=== PATIENT | female | born 1960 | race Caucasian/White ===

== ENCOUNTER 2017-01-05 18:31 | Inpatient (IN) | payer OTHER ==
[2017-01-05 18:31] VITALS: BMI 25.0
--- NOTE | 2017-01-05 19:56 | ED PDOC ---
HPI: Hypertension/Hypotension Time Seen by Provider: 01/05/17 19:19 Chief Complaint (Nursing): High Blood Pressure Chief Complaint (Provider): Headache/HTN History Per: Patient History/Exam Limitations: no limitations Onset/Duration Of Symptoms: Days (x2 months) Current Symptoms Are (Timing): Still Present Associated Symptoms: denies: Blurred Vision, Focal Weakness Additional Complaint(s): 19:19 Yogesh Mchugh is a 56 year old female with a history of hypertension, diabetes , and hyperlipidemia, as well as a past surgical history of debridement of an infected wound in her right ankle, that presents to the ED with a chief complaint of headache that she has been experiencing for the past two months, along with associated symptoms of lightheadedness, fatigue, and mild bilateral leg swelling. Patient states that her headache has been worsening since onset, and that she went to the clinic to have her symptoms evaluated for the first time. At the clinic, she was told that her blood pressure was highly elevated, and was sent to the ED for further evaluation. She denies any chest pain, shortness of breath, focal weakness, blurry vision, nausea, or vomiting. Of Note: Patient has not seen a doctor in the past 7 months. She is now a patient of the clinic. Past Medical History Reviewed: Historical Data, Nursing Documentation, Vital Signs Vital Signs: Last Vital Signs Temp 98.0 F 01/05/17 19:03 Pulse 99 H 01/05/17 19:03 Resp 18 01/05/17 19:03 BP 225/101 H 01/05/17 19:03 Pulse Ox 99 01/05/17 19:03 - Medical History PMH: Diabetes, HTN, Hyperlipidemia - Surgical History Other surgeries: debridement of infected wound on right ankle - Family History Family History: States: Diabetes, Hypertension - Social History Current smoker - smoking cessation education provided: No Alcohol: None Drugs: Denies - Home Medications Home Medications: Ambulatory Orders Medication Instructions Recorded GlipiZIDE [Glipizide] 10 mg PO BID 07/08/16 Lisinopril/Hydrochlorothiazide 1 tab PO DAILY 07/08/16 [Lisinopril-Hydrochlorothiazide 25 mg-20 mg] Lovastatin 10 mg PO DAILY 07/08/16 Metformin HCl [Glucophage] 1,000 mg PO BID 07/08/16 Patient Own Control 1 tab PO BID 01/05/17 - Allergies Allergies/Adverse Reactions: Allergies Allergy/AdvReac Type Severity Reaction Status Date / Time No Known Allergies Allergy Unverified 07/08/16 18:36 Review of Systems Constitutional: Positive for: Other (fatigue) Eyes: Negative for: Other (denies blurry vision or focal weakness) Cardiovascular: Positive for: Edema (mild leg swelling bilaterally), Light Headedness. Negative for: Chest Pain Respiratory: Negative for: Shortness of Breath Gastrointestinal: Negative for: Nausea, Vomiting Neurological: Positive for: Headache (x2 months) Physical Exam - Reviewed Nursing Documentation Reviewed: Yes Vital Signs Reviewed: Yes - Physical Exam Appears: Positive for: Non-toxic, In Acute Distress (in mild painful distress) Head Exam: Positive for: ATRAUMATIC, NORMOCEPHALIC Skin: Positive for: Warm, Dry Eye Exam: Positive for: Normal appearance, EOMI, PERRL ENT: Positive for: Pharynx Is (clear), Other (moist mucous membranes) Neck: Positive for: Painless ROM, Trachea Midline Cardiovascular/Chest: Positive for: Regular Rate, Rhythm. Negative for: Murmur Respiratory: Positive for: Normal Breath Sounds. Negative for: Wheezing Gastrointestinal/Abdominal: Positive for: Soft. Negative for: Tenderness, Mass , Guarding, Rebound Back: Positive for: Normal Inspection. Negative for: L CVA Tenderness, R CVA Tenderness Extremity: Positive for: Normal ROM, Pedal Edema (trace bilateral lower leg edema). Negative for: Deformity Lymphatic: Negative for: Adenopathy (no cervical lymph adenopathy) Neurologic/Psych: Positive for: Alert, Oriented (x3). Negative for: Motor/ Sensory Deficits - Laboratory Results Result Diagrams: 01/06/17 06:00 01/06/17 06:00 - ECG O2 Sat by Pulse Oximetry: 99 (RA) Pulse Ox Interpretation: Normal Medical Decision Making Medical Decision Makin:30 Initial Impression: Hypertension and Headache vs. Hypertensive Encephalopathy vs. Hypertensive Urgency vs. Renal Insufficiency vs. Electrolyte Abnormality Initial Plan: * CBC * CMP * BNP * PTT * PT * Magnesium * Phosphorous * Troponin * Glucose * Blood * POC * Urine dipstick * EKG * CT Head w/o contrast * Reevaluation 21:25 * Tylenol 975 mg PO * Vasotec 1.25 mg IV Accession No. 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 no. Patient Name: ALEJANDRA MCHUGH Pt. Address: [address] [place] [address]. Rec #: [id number] [place] [address]: Sarthak FARRIS, Sabina Schuler Pt Order Location: [facility] : 1960 Female Age: 56 Order #: [id number] Reason for exam: hypertension CT Scan HEAD W/O CONTRAST Exam Date: 01/05/17 This imaging exam was performed at [facility] EXAM: CT Head Without Intravenous Contrast. CLINICAL HISTORY: 56 years old, female; Signs and symptoms; Other: Hypertension, headaches; Additional info: Hypertension. No priors TECHNIQUE: Axial computed tomography images of the head/brain without intravenous contrast. This CT exam was performed using one or more of the following dose reduction techniques: automated exposure control, adjustment of the mA and/or kV according to patient size, and/or use of iterative reconstruction technique. Coronal and sagittal reformatted images were created and reviewed. COMPARISON: No relevant prior studies available. FINDINGS: Brain: Minimal atrophy. No intracranial hemorrhage. No mass. No definite edema. Ventricles: No hydrocephalus. Bones/joints: No acute fracture. Soft tissues: Unremarkable. Sinuses: No acute sinusitis. Mastoid air cells: No mastoid effusion. Orbits: Unremarkable as visualized. Sella: Flattening of pituitary gland with CSF density within sella. IMPRESSION: 1. No definite acute intracranial abnormality. Acute infarction may be CT occult within first 24 hours. If a focal deficit persists, consider followup CT or MRI for further evaluation. 2. Incidental/non-acute findings are described above. Dictated By: Enrico Shah MD Dictated Date/Time: 01/05/172057 Signed By: Enrico Shah MD Date Signed: 2057 Transcribed By: RENETTA Transcribe Date/Time : 01/05/172057 ACYP02/VRD Persistently elevated BP and headache. Mild renal insufficiency. Concern for hypertensive urgency/encephalopathy, and early renal disease from hypertension. Will hospitalize for uncontrolled BP. LOGAN THAKKAR resident. Scribe Attestation: Documented by Mirna Gomez, acting as a scribe for Sabina De León MD. Provider Scribe Attestation: All medical record entries made by the Scribe were at my direction and personally dictated by me. I have reviewed the chart and agree that the record accurately reflects my personal performance of the history, physical exam, medical decision making, and the department course for this patient. I have also personally directed, reviewed, and agree with the discharge instructions and disposition. Disposition - Clinical Impression Clinical Impression: Hypertensive urgency Counseled Patient/Family Regarding: Studies Performed, Diagnosis - Disposition Disposition Time: 23:00 Condition: FAIR - Pt Status Changed To: Hospital Disposition Of: Observation - POA Present On Arrival: Poor Glycemic Control
--- NOTE | 2017-01-05 20:58 | CT ---
EXAM: CT Head Without Intravenous Contrast. CLINICAL HISTORY: 56 years old, female; Signs and symptoms; Other: Hypertension, headaches; Additional info: Hypertension. No priors TECHNIQUE: Axial computed tomography images of the head/brain without intravenous contrast. This CT exam was performed using one or more of the following dose reduction techniques: automated exposure control, adjustment of the mA and/or kV according to patient size, and/or use of iterative reconstruction technique. Coronal and sagittal reformatted images were created and reviewed. COMPARISON: No relevant prior studies available. FINDINGS: Brain: Minimal atrophy. No intracranial hemorrhage. No mass. No definite edema. Ventricles: No hydrocephalus. Bones/joints: No acute fracture. Soft tissues: Unremarkable. Sinuses: No acute sinusitis. Mastoid air cells: No mastoid effusion. Orbits: Unremarkable as visualized. Sella: Flattening of pituitary gland with CSF density within sella. IMPRESSION: 1. No definite acute intracranial abnormality. Acute infarction may be CT occult within first 24 hours. If a focal deficit persists, consider followup CT or MRI for further evaluation. 2. Incidental/non-acute findings are described above.
[2017-01-05 21:07] LABS: BASO % 0.4 % (0.0-2.0); EOS % 0.4 % (0.0-4.0); HEMATOCRIT 33.4 % (34.0-47.0); LYMPH # 1.5 K/uL (1.0-4.3); LYMPH % 12.5 % (20.0-40.0); MEAN CELL VOLUME 85.6 fl (81.0-99.0); MEAN CORPUSCULAR HEMOGLOBIN 27.9 pg (27.0-31.0); MEAN CORPUSCULAR HGB CONC 32.6 g/dL (33.0-37.0); MEAN PLATELET VOLUME 9.7 fl (7.2-11.7); MONO # 0.6 K/uL (0.0-0.8); MONO % 4.7 % (0.0-10.0); NEUT # 9.6 K/uL (1.8-7.0); PARTIAL THROMBOPLASTIN TIME 26.6 SECONDS (23.3-32.5); RED CELL DISTRIBUTION WIDTH 13.2 % (11.5-14.5); WHITE BLOOD COUNT 11.8 K/uL (4.8-10.8)
[2017-01-05 21:22] LABS: ALKALINE PHOSPHATASE 241 U/L (38-126); ALT/SGPT 37 U/L (9-52); AST/SGOT 33 U/L (14-36); BILIRUBIN,TOTAL 0.4 mg/dl (0.2-1.3); BLOOD UREA NITROGEN 28 mg/dl (7-17); CALCIUM 9.5 mg/dL (8.4-10.2); CARBON DIOXIDE 22 mmol/L (22-30); CHLORIDE 101 mmol/L (98-107); GFR AFRICAN-AMERICAN > 60; GLUCOSE,RANDOM 308 mg/dL (65-105); MAGNESIUM 1.5 MG/DL (1.6-2.3); PHOSPHOROUS 3.7 mg/dl (2.5-4.5); POTASSIUM 5.1 MMOL/L (3.6-5.0); SODIUM 140 mmol/l (132-148); TOTAL PROTEIN 7.9 G/DL (6.3-8.2)
[2017-01-05] MEDS ORDERED: Enalaprilat 2.5 MG/2 ML IVP STA (21:36)
[2017-01-05] MEDS ORDERED: EnalaprilAT 1.25 mg/ml Inj ONE (21:57)
[2017-01-05] MEDS ORDERED: Labetalol 5mg/ml (4ml) IVP STA (23:53)
[2017-01-06] MEDS ORDERED: Labetalol 5mg/ml (4ml) ONE (00:55)
--- NOTE | 2017-01-06 00:58 | CP.PCM.HP ---
History of Present Illness - History of Present Illness History of Present Illness: 56 yo F with PMHx HTN, HLD, DM presented to clinic for initial visit. Patient was previously seen by Dr. Wang approx 6 months ago. Patient was last seen at [facility] ED 06/2016 for chest pain though no issues with HTN at that time. Patient was found to have BP of ~200/90. Patient was given 5mg of Amlodipine though did not lower blood pressure significantly so patient was therefore sent to ED for further evaluation. Of note, patient had been having headaches x 2 months, including this morning and prior to arrival. Patient denies visual changes, palpitations, chest pain, sob, abdominal pain, dizziness , back pain, urinary/bowel symptoms. Patient states compliance with medications and states she took them this AM. No other complaints at this time. Patient admits to having a poor diet including foods that have increased salt and fat ( e.g. fried shrimp from [employer] last night) PMHx: HTN, HLD, DM Meds: As per chart Allergies: NKDA Surgeries: debridement of an infected wound in her right ankle (states 2/2 DM) Social hx: Lives with family, works 12 hr shifts, Denies etoh, tobacco, or drug use. ED Course: Vitals notable for BPs 200s/90s with HR in 90s PE: unremarkable except for trace bilateral lower extremity edema EKG: unremarkable Meds: Tylenol 975mg x1, Vasotec 1.25mg x 1 Labs: remarkable for mild leukocytosis, mild hyperkalemia, elevated serum glucose, elevated Alk phos. Trop negative Imaging: CT head, unremarkable. Present on Admission - Present on Admission Any Indicators Present on Admission: No Review of Systems - Review of Systems All systems: reviewed and no additional remarkable complaints except (mentioned in HPI) Past Patient History - Past Social History Alcohol: None Drugs: Denies - CARDIAC Hx Hypertension: Yes - ENDOCRINE/METABOLIC Hx Diabetes Mellitus Type 1: Yes Hx Diabetes Mellitus Type 2: Yes - PSYCHIATRIC Hx Substance Use: No Meds Allergies/Adverse Reactions: Allergies Allergy/AdvReac Type Severity Reaction Status Date / Time No Known Allergies Allergy Unverified 07/08/16 18:36 Physical Exam - Constitutional Appears: Well, Non-toxic, No Acute Distress - Head Exam Head Exam: ATRAUMATIC, NORMAL INSPECTION, NORMOCEPHALIC - Eye Exam Eye Exam: EOMI, Normal appearance, PERRL - Neck Exam Neck exam: Positive for: Normal Inspection - Respiratory Exam Respiratory Exam: Clear to Auscultation Bilateral, NORMAL BREATHING PATTERN. absent: Decreased Breath Sounds, Rales, Rhonchi, Wheezes - Cardiovascular Exam Cardiovascular Exam: RRR, +S1, +S2 - GI/Abdominal Exam GI & Abdominal Exam: Normal Bowel Sounds, Soft. absent: Distended, Tenderness - Extremities Exam Extremities exam: Positive for: normal inspection, pedal edema (mild bilaterally ). Negative for: calf tenderness Additional comments: varicose veins bilaterally - Back Exam Back exam: NORMAL INSPECTION - Neurological Exam Neurological exam: Alert, Oriented x3 - Psychiatric Exam Psychiatric exam: Normal Affect, Normal Mood - Skin Skin Exam: Dry, Intact, Normal Color, Warm Results - Vital Signs Recent Vital Signs: Last Vital Signs Temp 98.0 F 01/05/17 19:03 Pulse 98 H 01/05/17 22:40 Resp 22 01/05/17 22:40 BP 212/103 H 01/05/17 23:50 Pulse Ox 99 01/05/17 22:40 - Labs Result Diagrams: 01/05/17 20:33 01/05/17 20:33 Assessment & Plan (1) Hypertensive disease Status: Acute (2) HLD (hyperlipidemia) Status: Chronic (3) Diabetes mellitus Status: Chronic (4) DVT prophylaxis Status: Acute - Assessment and Plan (Free Text) Assessment: 56 yo F with PMHx HTN, HLD, DM with uncontrolled hypertension associated with intermittent headaches. Plan: (1) Hypertensive disease - Uncontrolled though asymptomatic at this time - CT head negative - s/p amlodipine 5mg in clinic, 1.25mg IV vasotec in ED in addition to home meds of Lisinopril 20mg and HCTZ 25mg - Continues to be elevated and uncontrolled - Labetalol 20mg IVP stat - Continue to monitor vitals - Admit to Telemetry for continous cardiac monitoring - Echo ordered, pro-bnp wnl - EKG in AM - Trop x 1 neg, obtain serial trop - TSH, CBC, CMP in AM - UA pending - Monitor K and WBC (2) HLD (hyperlipidemia) - Continue home meds - Lipid panel ordered for AM - alk phos elevated, obtain GGT (3) Diabetes mellitus - Continue home meds at this time. - will obtain HgbA1c at this time (4) DVT prophylaxis - Lovenox 40mg SC daily
[2017-01-06 07:11] LABS: HEMATOCRIT 34.9 % (34.0-47.0); MEAN CELL VOLUME 84.8 fl (81.0-99.0); MEAN CORPUSCULAR HEMOGLOBIN 28.4 pg (27.0-31.0); MEAN CORPUSCULAR HGB CONC 33.5 g/dL (33.0-37.0); RED CELL DISTRIBUTION WIDTH 13.4 % (11.5-14.5); WHITE BLOOD COUNT 8.8 K/uL (4.8-10.8)
[2017-01-06 07:33] LABS: ALKALINE PHOSPHATASE 242 U/L (38-126); ALT/SGPT 38 U/L (9-52); AST/SGOT 37 U/L (14-36); BILIRUBIN,TOTAL 0.4 mg/dl (0.2-1.3); BLOOD UREA NITROGEN 21 mg/dl (7-17); CARBON DIOXIDE 28 mmol/L (22-30); CHLORIDE 103 mmol/L (98-107); CHOLESTEROL 187 mg/dL (0-199); GFR AFRICAN-AMERICAN > 60; GLUCOSE,RANDOM 241 mg/dL (65-105); POTASSIUM 5.1 MMOL/L (3.6-5.0); SODIUM 144 mmol/l (132-148); TOTAL PROTEIN 7.9 G/DL (6.3-8.2)
[2017-01-06 08:04] LABS: THYROID STIMULATING HORMONE 1.49 mIU/ML (0.46-4.68)
[2017-01-06] MEDS ORDERED: Patient's Own Med (Lisinopril/Hydrochlorothiazide [Lisinopril-Hctz 20-25 Mg Tab] 1 TAB) PO SCH (09:00)
[2017-01-06] MEDS ORDERED: LOVASTATIN 10 MG PO SCH (09:00)
[2017-01-06] MEDS: Enoxaparin 40 mg Syringe SC SCH (09:37)
[2017-01-06 10:19] LABS: RBC URINE < 1 /hpf (0-3); URINE BACTERIA OCC (<OCC); URINE BILIRUBIN NEGATIVE (NEGATIVE); URINE BLOOD NEGATIVE (NEGATIVE); URINE COLOR STRAW (YELLOW); URINE GLUCOSE (UA) NEG (Normal); URINE KETONE NEGATIVE (NEGATIVE); URINE LEUKOCYTE ESTERASE NEG Leu/uL (Negative); URINE PROTEIN NEGATIVE (NEGATIVE); URINE UROBILINOGEN 0.2-1.0 mg/dL (0.2-1.0); WBC URINE 2 /hpf (0-5)
[2017-01-06] MEDS: Insulin Regular 100 units/ml SC SCH ×3 (11:55→23:32)
--- NOTE | 2017-01-06 13:56 | CARD ---
APPROVED REPORT EKG Measurement Heart [id number] <Conclusion> Normal sinus rhythm Normal ECG
--- NOTE | 2017-01-06 16:02 | CARD ---
APPROVED REPORT EXAM: Two-dimensional and M-mode echocardiogram with Doppler and color Doppler. Other Information Quality : AverageRhythm : NSR INDICATION Hypertension/HCVD 2D DIMENSIONS IVSd1.24 (0.7-1.1cm)LVDd3.79 (3.9-5.9cm) LVOT Diameter1.85 (1.8-2.4cm)PWd0.73 (0.7-1.1cm) IVSs1.24 (0.8-1.2cm)LVDs2.45 (2.5-4.0cm) FS (%) 35.4 %PWs1.19 (0.8-1.2cm) M-Mode DIMENSIONS Left Atrium (MM)3.53 (2.5-4.0cm)IVSd1.47 (0.7-1.1cm) Aortic Root2.85 (2.2-3.7cm)LVDd4.32 (4.0-5.6cm) Aortic Cusp Exc.1.24 (1.5-2.0cm)PWd1.26 (0.7-1.1cm) IVSs1.82 cmFS (%) 37 % LVDs2.71 (2.0-3.8cm)PWs1.44 cm Mitral Valve E/A ratio0.0 TDI E/Lateral E'0.0E/Medial E'0.0 Pulmonary Valve PV Peak Fssstear468.3cm/s Tricuspid Valve TR Peak [id number] [id number] Peak Gr.23mmHg [id number] LEFT VENTRICLE The left ventricle is normal size. There is normal left ventricular wall thickness. The left ventricular function is normal. The left ventricular ejection fraction is within the normal range. The Ejection Fraction is 55-60%. There is normal LV segmental wall motion. The left ventricular diastolic function is normal. No left ventricle thrombus noted on this study. There is no mass noted in the left ventricle. RIGHT VENTRICLE The right ventricle is normal size. There is normal right ventricular wall thickness. The right ventricular systolic function is normal. ATRIA The left atrium size is normal. The right atrium size is normal. The interatrial septum is intact with no evidence for an atrial septal defect. AORTIC VALVE The aortic valve is normal in structure and function. No aortic regurgitation is present. There is no aortic valvular stenosis. There is no aortic valvular vegetation. MITRAL VALVE The mitral valve is normal in structure and function. There is no evidence of mitral valve prolapse. There is no mitral valve stenosis. There is no mitral valve regurgitation noted. TRICUSPID VALVE The tricuspid valve is normal in structure and function. There is no tricuspid valve regurgitation noted. There is no tricuspid valve prolapse or vegetation. There is no tricuspid valve stenosis. PULMONIC VALVE The pulmonary valve is normal in structure and function. There is no pulmonic valvular regurgitation. There is no pulmonic valvular stenosis. GREAT VESSELS The aortic root is normal in size. The IVC is normal in size and collapses >50% with inspiration. PERICARDIAL EFFUSION The pericardium appears normal. There is no pleural effusion. <Conclusion> The left ventricle is normal size. The left ventricular function is normal. The left ventricular ejection fraction is within the normal range. The Ejection Fraction is 55-60%.
--- NOTE | 2017-01-06 18:52 | US ---
Ultrasonography renal arterial evaluation History: Evaluate for renal artery stenosis. Comparison: None. Technique: Real-time ultrasonography evaluation of the renal arteries were performed. Comparison is made to the aorta. Findings: Aorta: Patent. Peak systolic velocity is 54.1 centimeters/second Right Renal artery: Proximal segment: Patent. Peak systolic velocity 202.1 centimeters/second Mid segment: Patent. Peak systolic velocity 79.4 centimeters/second Distal segment: Patent. Peak systolic velocity 78.5 centimeters/second Renal artery to aorta ratio: 3.7 Right kidney: Right kidney measures 10.4 centimeters. Mild increased echogenicity of the renal cortex. No hydronephrosis. No shadowing echogenic calculus. Left renal artery: Proximal segment: Patent. Peak systolic velocity 135.4 centimeters/second Mid segment: Patent. Peak systolic velocity 66.4 centimeters/seconds Distal segment: Patent. Peak systolic velocity 106.9 centimeters/second Renal artery to aorta ratio: 2.5 Left kidney: The left kidney measures 9.6 centimeters. Mild increased echogenicity of the renal cortex. No hydronephrosis. No shadowing echogenic calculus. Other findings: The visualized portions of the IVC appear unremarkable. No aneurysmal dilatation within the visualized segments of the aorta. Scattered plaque noted. Suboptimal evaluation of the urinary bladder. Impression: Due to the relatively high renal artery to aortic velocity ratio in the proximal right renal artery, these images are suspicious for hemodynamically significant stenosis of the proximal right renal artery. Correlation with abdominal angiography could be obtained. Mildly increased echogenic renal cortices bilaterally. Correlate with renal function.
[2017-01-07] MEDS: Insulin Regular 100 units/ml SC SCH ×3 (06:42→16:58)
[2017-01-07] MEDS: Enoxaparin 40 mg Syringe SC SCH (09:28)
--- NOTE | 2017-01-07 09:57 | CP.PCM.PN ---
Subjective - Date & Time of Evaluation Date of Evaluation: 01/07/17 Time of Evaluation: 09:56 - Subjective Subjective: 56 year old female was seen resting comfortably at bedside. Patient states that she feels better today. She is in no acute distress, AAOx3. She states that her headache is gone today. She denies any n/v/f/c/sob/cp. Patient to have CTA this morning. Objective - Vital Signs/Intake and Output Vital Signs (last 24 hours): Temp Pulse Resp BP Pulse Ox 98 F 94 H 20 157/78 H 100 01/07/17 09:00 01/07/17 09:27 01/07/17 09:00 01/07/17 09:27 01/07/17 09:00 - Medications Medications: Current Medications Acetaminophen (Tylenol 325mg Tab) 650 mg PO Q6 PRN PRN Reason: Headache Last Admin: 01/06/17 20:24 Dose: 650 mg Amlodipine Besylate (Norvasc) 10 mg PO DAILY [facility] Last Admin: 01/07/17 09:27 Dose: 10 mg Enoxaparin Sodium (Lovenox) 40 mg SC DAILY [facility] PRN Reason: Protocol Last Admin: 01/07/17 09:28 Dose: 40 mg Glipizide (Glucotrol) 10 mg PO BID [facility] Last Admin: 01/07/17 09:25 Dose: Not Given Hydrochlorothiazide (Hydrodiuril) 25 mg PO DAILY [facility] Last Admin: 01/07/17 09:25 Dose: 25 mg Insulin Human Regular (Humulin R) 0 units SC ACCU-CHECK [facility] PRN Reason: Protocol Last Admin: 01/07/17 06:42 Dose: 2 units Lisinopril (Zestril) 20 mg PO DAILY [facility] Metformin HCl (Glucophage) 1,000 mg PO BID [facility] Last Admin: 01/07/17 09:25 Dose: Not Given Metoprolol Tartrate (Lopressor) 12.5 mg PO Q12 [facility] Last Admin: 01/07/17 09:26 Dose: 12.5 mg Pravastatin Sodium (Pravachol) 10 mg PO DAILY [facility] Last Admin: 01/06/17 09:36 Dose: 10 mg - Labs Labs: PT 10.6 SECONDS (9.6-11.2) 01/05/17 20:33 INR 1.02 (0.92-1.08) 01/05/17 20:33 APTT 26.6 SECONDS (23.3-32.5) 01/05/17 20:33 - Constitutional Appears: Well, Non-toxic, No Acute Distress - Head Exam Head Exam: ATRAUMATIC, NORMAL INSPECTION - Eye Exam Eye Exam: EOMI, Normal appearance - Respiratory Exam Respiratory Exam: NORMAL BREATHING PATTERN. absent: Rales, Rhonchi, Wheezes - Cardiovascular Exam Cardiovascular Exam: REGULAR RHYTHM, +S1, +S2 - GI/Abdominal Exam GI & Abdominal Exam: Soft, Normal Bowel Sounds. absent: Tenderness - Extremities Exam Extremities Exam: Calf Tenderness. absent: Pedal Edema Additional comments: varicosites noted to BL LE - Back Exam Back Exam: NORMAL INSPECTION - Neurological Exam Neurological Exam: Alert, Awake, Oriented x3 - Psychiatric Exam Psychiatric exam: Normal Affect, Normal Mood - Skin Skin Exam: Dry, Normal Color, Warm Assessment and Plan - Assessment and Plan (Free Text) Assessment: 56 yo F with PMHx HTN, HLD, DM with uncontrolled hypertension associated with intermittent headaches. Plan: (1) Hypertensive disease - Renal US Impression: Due to the relatively high renal artery to aortic velocity ratio in the proximal right renal artery, these images are suspicious for hemodynamically significant stenosis of the proximal right renal artery. Correlation with abdominal angiography could be obtained. Mildly increased echogenic renal cortices bilaterally. Correlate with renal function. - Abdomen US ordered- pending official read - CTA ordered- pending official read - CT head negative - HTN currently controlled on medications:Norvasc 10 mg PO daily, Lisinopril 20mg PO daily, Metoprolol 12.5 mg PO Q12h - Continue to monitor vitals - Echo: LV normal size, EF 55-60%, LV function normal, LV EF is within the normal range - Pro-bnp wnl - EKG- normal sinus rhythm, normal ECG - Trop x 3 neg - TSH WNL - WBC 8.8 (01/06/17) - UA pending - Monitor K and WBC (2) HLD (hyperlipidemia) - Continue home meds:Pravastatin 10 mg PO daily - Controlled - alk phos elevated-242 - GGT 199 (3) Diabetes mellitus - Continue home meds at this time. - HgbA1c 9.0 (4) DVT prophylaxis - Lovenox 40mg SC daily
[2017-01-07] MEDS ORDERED: Iodixanol 320 MG/ML 100 ML BOTTLE IV ONE (11:33)
[2017-01-07] MEDS ORDERED: Sodium Chloride 0.9% 50 ML IV ONE (11:34)
[2017-01-07 13:40] LABS: CALCIUM 10.3 mg/dL (8.4-10.2); POTASSIUM 4.9 MMOL/L (3.6-5.0)
--- NOTE | 2017-01-07 14:06 | US ---
HISTORY: Biliary tree eval. COMPARISON: None. TECHNIQUE: Sonographic evaluation of the abdomen. FINDINGS: LIVER: Measures 17.8 cm. Patent portal vein. Portal venous flow: Hepatopetal. Unremarkeable echogenicity of the liver parenchyma. No mass. No intrahepatic bile duct dilatation. GALLBLADDER: Unremarkable. No gallstones. COMMON BILE DUCT: Measures 4.5 mm. No stones. No dilatation. PANCREAS: Unremarkable as visualized. No mass. No ductal dilatation. RIGHT KIDNEY: Measures 10.1 x 5.6cm. Normal echogenicity. No calculus, mass, or hydronephrosis. AORTA: No aneurysmal dilatation. IVC: Unremarkable. OTHER FINDINGS: None. IMPRESSION: No significant or acute findings to account for/ related to the clinical presentation.
--- NOTE | 2017-01-07 15:21 | CT ---
PROCEDURE: CT angiogram of the abdomen. HISTORY: eval for right renal artery stenosis COMPARISON: Comparison is made to the previous ultrasound Doppler of the renal arteries dated 01/06/2017 TECHNIQUE: Axial and reformatted coronal and sagittal CT images of the abdomen were obtained before and after IV contrast administration. 3D reconstruction images were also obtained. FINDINGS: The abdominal aorta is normal in caliber. No evidence of aneurysm or focal stenosis. 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 Moderate atherosclerotic disease at the left common iliac artery. There is no evidence of significant stenosis in the renal arteries. Celiac trunk is normal in caliber and shape. There is moderate stenosis approximately 60 percent at the proximal portion of the SMA. There are collateral arteries posterior to the distal abdominal aorta. The left kidney is smaller than the right. Focal atrophy/scarring at the lower pole of the left kidney is noted. There is also focal cortical defect at the upper pole of the right kidney. No evidence of hydronephrosis. The kidneys enhance symmetrically. Mild hepatomegaly and aziu-dg-vyyeuamd hepatic steatosis noted. No evidence of acute pathology in the GI system. IMPRESSION: No CTA evidence of significant stenosis in the renal arteries. 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 Afon-ks-xjhaywvm stenosis at the proximal portion of the SMA approximately 60- 70 percent. Mild hepatomegaly and rgdi-vn-nvgqdeqi steatosis. The left kidney is smaller than the right , likely due to scarring/or infarction of the lower pole of the left kidney.
[2017-01-07 16:04] VITALS: BP 127/68; RESP 20; TEMP 98.3
--- NOTE | 2017-01-07 16:07 | CP.PCM.DIS ---
Provider - Provider Date of Admission: 01/06/17 23:38 Attending physician: Gabriela Parsons MD Time Spent in preparation of Discharge (in minutes): 45 Diagnosis - Discharge Diagnosis (1) Hypertensive urgency Status: Resolved Comment: Controlled with medication (2) Diabetes mellitus Status: Chronic (3) HLD (hyperlipidemia) Status: Chronic Hospital Course - Lab Results Lab Results: Most Recent Lab Values WBC 8.8 K/uL (4.8-10.8) 01/06/17 06:00 RBC 4.12 Mil/uL (3.80-5.20) 01/06/17 06:00 Hgb 11.7 g/dL (12.0-16.0) L 01/06/17 06:00 Hct 34.9 % (34.0-47.0) 01/06/17 06:00 MCV 84.8 fl (81.0-99.0) 01/06/17 06:00 MCH 28.4 pg (27.0-31.0) 01/06/17 06:00 MCHC 33.5 g/dL (33.0-37.0) 01/06/17 06:00 RDW 13.4 % (11.5-14.5) 01/06/17 06:00 Plt Count 216 K/uL (130-400) 01/06/17 06:00 MPV 9.7 fl (7.2-11.7) 01/05/17 20:33 Neut % (Auto) 82.0 % (50.0-75.0) H 01/05/17 20:33 Lymph % (Auto) 12.5 % (20.0-40.0) L 01/05/17 20:33 [place] % (Auto) 4.7 % (0.0-10.0) 01/05/17 20:33 Eos % (Auto) 0.4 % (0.0-4.0) 01/05/17 20:33 Baso % (Auto) 0.4 % (0.0-2.0) 01/05/17 20:33 Neut # 9.6 K/uL (1.8-7.0) H 01/05/17 20:33 Lymph # 1.5 K/uL (1.0-4.3) 01/05/17 20:33 [place] # 0.6 K/uL (0.0-0.8) 01/05/17 20:33 Eos # 0.0 K/uL (0.0-0.7) 01/05/17 20:33 Baso # 0.0 K/uL (0.0-0.2) 01/05/17 20:33 PT 10.6 SECONDS (9.6-11.2) 01/05/17 20:33 INR 1.02 (0.92-1.08) 01/05/17 20:33 APTT 26.6 SECONDS (23.3-32.5) 01/05/17 20:33 Sodium 141 mmol/l (132-148) 01/07/17 12:40 Potassium 4.9 MMOL/L (3.6-5.0) 01/07/17 12:40 Chloride 98 mmol/L (98-107) 01/07/17 12:40 Carbon Dioxide 26 mmol/L (22-30) 01/07/17 12:40 Anion Gap 22 (10-20) H 01/07/17 12:40 BUN 28 mg/dl (7-17) H 01/07/17 12:40 Creatinine 1.2 mg/dL (0.7-1.2) 01/07/17 12:40 Est GFR ( Amer) 56 01/07/17 12:40 Est GFR (Non-Af Amer) 46 01/07/17 12:40 POC Glucose (mg/dL) 192 mg/dL (65-110) H 01/07/17 12:26 Random Glucose 202 mg/dL (65-105) H 01/07/17 12:40 Hemoglobin A1c 9.0 % (4.2-6.5) H 01/06/17 06:00 Calcium 10.3 mg/dL (8.4-10.2) H 01/07/17 12:40 Phosphorus 3.7 mg/dl (2.5-4.5) 01/05/17 20:33 Magnesium 1.5 MG/DL (1.6-2.3) L 01/05/17 20:33 Total Bilirubin 0.4 mg/dl (0.2-1.3) 01/06/17 06:00 GGT 199 U/L (8-78) H 01/06/17 06:00 AST 37 U/L (14-36) H 01/06/17 06:00 ALT 38 U/L (9-52) 01/06/17 06:00 Alkaline Phosphatase 242 U/L (38-126) H 01/06/17 06:00 Troponin I < 0.0120 ng/mL (0.00-0.120) 01/06/17 12:25 NT-Pro-B Natriuret Pep 140 pg/ml (0-900) 01/05/17 20:33 Total Protein 7.9 G/DL (6.3-8.2) 01/06/17 06:00 Albumin 3.9 g/dL (3.5-5.0) 01/06/17 06:00 Globulin 4.0 gm/dL (2.2-3.9) H 01/06/17 06:00 Albumin/Globulin Ratio 1.0 (1.0-2.1) 01/06/17 06:00 Triglycerides 126 mg/DL (0-149) 01/06/17 06:00 Cholesterol 187 mg/dL (0-199) 01/06/17 06:00 LDL Cholesterol Direct 89 mg/dL (0-129) 01/06/17 06:00 HDL Cholesterol 62 MG/DL (30-70) 01/06/17 06:00 TSH 3rd Generation 1.49 mIU/ML (0.46-4.68) 01/06/17 06:00 Urine Color Straw (YELLOW) 01/06/17 10:06 Urine Clarity Clear (Clear) 01/06/17 10:06 Urine pH 6.0 (5.0-8.0) 01/06/17 10:06 Ur Specific Bailey 1.006 (1.003-1.030) 01/06/17 10:06 Urine Protein Negative mg/dL (NEGATIVE) 01/06/17 10:06 Urine Glucose (UA) Neg mg/dL (Normal) 01/06/17 10:06 Urine Ketones Negative mg/dL (NEGATIVE) 01/06/17 10:06 Urine Blood Negative (NEGATIVE) 01/06/17 10:06 Urine Nitrate Negative (NEGATIVE) 01/06/17 10:06 Urine Bilirubin Negative (NEGATIVE) 01/06/17 10:06 Urine Urobilinogen 0.2-1.0 mg/dL (0.2-1.0) 01/06/17 10:06 Ur Leukocyte Esterase Neg Janna/uL (Negative) 01/06/17 10:06 Urine RBC (Auto) < 1 /hpf (0-3) 01/06/17 10:06 Urine Microscopic WBC 2 /hpf (0-5) 01/06/17 10:06 Ur Squamous Epith Cells < 1 /hpf (0-5) 01/06/17 10:06 Urine Bacteria Occ (<OCC) H 01/06/17 10:06 ZAC Screen Negative (Negative) 01/06/17 10:00 Anti-Mitochondrial Ab Negative (Negative) 01/06/17 10:00 - Hospital Course Hospital Course: 56 year old female with PMHx of HTN, HLD, DM presented to ED from [facility] for evaluation of elevation blood pressure. Blood pressure was controlled with medication. Head CT was obtained and no acute findings noted. Renal US showed suspicion for stenosis of the proximal right renal artery. No acute findings were seen on abdomen ultrasound. CTA angio showed No evidence of significant stenosis in the renal arteries. 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 Uyvo-xd-llygqnzg stenosis at the proximal portion of the SMA approximately 60- 70 percent. Mild hepatomegaly and zldn-un-irrgxqmc steatosis. The left kidney is smaller than the right, likely due to scarring/or infarction of the lower pole of the left kidney. Patient to follow up with [facility] next week. Discharge Plan - Follow Up Plan Condition: GOOD Disposition: HOME/ ROUTINE Additional Instructions: Please follow up with [facility] next week. Medications: Metformin 1000 mg PO BID Lisinopril/HCTZ 1 tab PO daily Lovastatin 10 mg PO daily Glipizide 10 mg PO BID Metoprolol 12.5 mg PO Q12H Amplodipine 10mg PO daily Referrals: [facility] [Outside]
[2017-01-07 16:55] VITALS: PULSE 82; O2SAT 96
[2017-01-08 10:39] LABS: MICROALBUMIN 5.9 mg/dL (())
[2017-01-09 16:57] LABS: ALDOSTERONE <1 ng/dL (())
== END 2017-01-07 17:40 | disposition home or self-care (01) | DRG 134 ==
LOC: H.ER 18:31 → H.ERHOLD 21:55 → H.TEL 01-06 01:46 → OBSVTOIN 01-06 23:38
PROVIDERS: ADMIT Family Medicine Geriatric Medicine; ATTEND Family Medicine Geriatric Medicine
DX: I16.0 Hypertensive urgency (principal); I74.5 Embolism and thrombosis of iliac artery; E10.9 Type 1 diabetes mellitus without complications; E78.5 Hyperlipidemia, unspecified

== ENCOUNTER 2017-01-09 12:30 | Observation (INO) | payer OTHER ==
--- NOTE | 2017-01-09 14:34 | ED PDOC ---
Lower Extremity Pain/Injury Time Seen by Provider: 01/09/17 14:19 Chief Complaint (Nursing): Medical Clearance Chief Complaint (Provider): Lower Extremity Pain History Per: Patient, Family (daughter) History/Exam Limitations: no limitations Onset/Duration Of Symptoms: Days (for many years), Worse Since (recently) Additional Complaint(s): Lucian Mchugh is a 56 year old female, with a past medical history of HTN, diabetes, chronic renal insufficiency, and varicose veins (bilateral lower extremities), presenting to the emergency department with complaints of chronic lower extremity pain that has been persistent for many years. Associated mild bilateral lower extremity swelling, the right side being worse than the left, also reported. Though the pain has not worsened recently the patient was referred to the emergency room by her PMD secondary to abnormal CT Angiography results to rule out DVT. She was accompanied by her daughter and she stated that the patient has not ever been evaluated in the emergency department for a DVT in the past. Denies chest pain, shortness breath and a fever. Of note, patient was recently admitted to this facility for HTN. PMD: [place] Sujit Past Medical History Reviewed: Historical Data, Nursing Documentation, Vital Signs - Medical History PMH: Diabetes, GERD, HTN, Hyperlipidemia, Chronic Kidney Disease - Surgical History Other surgeries: surgery of right ankle due to chronic leg wound - Family History Family History: States: Diabetes, Hypertension - Home Medications Home Medications: Ambulatory Orders Medication Instructions Recorded Lisinopril/Hydrochlorothiazide 1 tab PO DAILY 07/08/16 [Lisinopril-Hctz 20-25 mg Tab] Lovastatin 10 mg PO DAILY 07/08/16 Metformin HCl [Glucophage] 1,000 mg PO BID 07/08/16 Patient Own Control 1 tab PO BID 01/05/17 GlipiZIDE [Glucotrol] 10 mg PO BID tab 01/07/17 Metoprolol Tartrate [Lopressor] 12.5 mg PO Q12 tab 01/07/17 amLODIPine [Norvasc] 10 mg PO DAILY tab 01/07/17 - Allergies Allergies/Adverse Reactions: Allergies Allergy/AdvReac Type Severity Reaction Status Date / Time No Known Allergies Allergy Unverified 07/08/16 18:36 Review of Systems ROS Statement: Except As Marked, All Systems Reviewed And Found Negative Constitutional: Negative for: Fever ENT: Positive for: Throat Pain Cardiovascular: Positive for: Edema (mild bilateral lower extremity). Negative for: Chest Pain Respiratory: Negative for: Shortness of Breath Musculoskeletal: Positive for: Leg Pain (bilateral, chronic) Physical Exam - Reviewed Nursing Documentation Reviewed: Yes Vital Signs Reviewed: Yes - Physical Exam Appears: Positive for: Non-toxic, No Acute Distress Head Exam: Positive for: ATRAUMATIC, NORMOCEPHALIC Skin: Positive for: Normal Color, Warm, Dry Eye Exam: Positive for: Normal appearance, EOMI, PERRL Neck: Positive for: Normal, Painless ROM, Supple Cardiovascular/Chest: Positive for: Regular Rate, Rhythm. Negative for: Murmur Respiratory: Positive for: Normal Breath Sounds. Negative for: Wheezing, Respiratory Distress Gastrointestinal/Abdominal: Positive for: Normal Exam, Soft. Negative for: Tenderness Back: Positive for: Normal Inspection Extremity: Positive for: Normal ROM, Swelling (bilateral lower extremities, right worse than left), Other (varicose veins noted within bilateral lower extremities). Negative for: Tenderness, Calf Tenderness Neurologic/Psych: Positive for: Alert, Oriented - Laboratory Results Result Diagrams: 01/09/17 14:00 01/09/17 14:00 Medical Decision Making Medical Decision Makin:19 Initial Impression: bilateral lower extremity pain/swelling Differential Diagnoses include, but are not limited to DVT, arterial insufficiency, and varicosens veins. Previous CT Angio Study at 01/07/17 reviewed. FINDINGS: The abdominal aorta is normal in caliber. No evidence of aneurysm or focal stenosis. 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 Moderate atherosclerotic disease at the left common iliac artery. There is no evidence of significant stenosis in the renal arteries. Celiac trunk is normal in caliber and shape. There is moderate stenosis approximately 60 percent at the proximal portion of the SMA. There are collateral arteries posterior to the distal abdominal aorta. The left kidney is smaller than the right. Focal atrophy/scarring at the lower pole of the left kidney is noted. There is also focal cortical defect at the upper pole of the right kidney. No evidence of hydronephrosis. The kidneys enhance symmetrically. Mild hepatomegaly and uwrm-xu-bxctkrlt hepatic steatosis noted. No evidence of acute pathology in the GI system. IMPRESSION: No CTA evidence of significant stenosis in the renal arteries. 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 Arlr-el-sdshkjnp stenosis at the proximal portion of the SMA approximately 60- 70 percent. Mild hepatomegaly and ntlc-nw-mbphmieb steatosis. The left kidney is smaller than the right , likely due to scarring/or infarction of the lower pole of the left kidney. Initial Plan: * CT Angio Abd Ileofem Runoff * CBC * BMP * PT/PTT * Acetylcysteine 20% 3ml PO * Sodium Chloride 0.9% 1,000ml IV at 1,000mls/hr * Reevaluation Scribe Attestation: Documented by José Luis Matt, training under, Radha Samano, acting as a scribe for Rosemarie Castro MD. Provider Scribe Attestation: All medical record entries made by the Scribe were at my direction and personally dictated by me. I have reviewed the chart and agree that the record accurately reflects my personal performance of the history, physical exam, medical decision making, and the department course for this patient. I have also personally directed, reviewed, and agree with the discharge instructions and disposition. Disposition - Clinical Impression Clinical Impression: Iliac artery occlusion - Patient ED Disposition Is Patient to be Admitted: Yes Discussed With : Fercho Rowell Doctor Will See Patient In The: ED Counseled Patient/Family Regarding: Studies Performed, Diagnosis - Disposition Disposition Time: 15:00 Condition: FAIR - Pt Status Changed To: Hospital Disposition Of: Inpatient - Admit Certification Admit to Inpatient:: After my assessment, the patient will require hospitalization for at least two midnights. This is because of the severity of symptoms shown, intensity of services needed, and/or the medical risk in this patient being treated as an outpatient. - POA Present On Arrival: Poor Glycemic Control
[2017-01-09 15:01] LABS: BASO # 0.1 K/uL (0.0-0.2); BASO % 0.9 % (0.0-2.0); EOS # 0.2 K/uL (0.0-0.7); EOS % 1.8 % (0.0-4.0); HEMATOCRIT 35.6 % (34.0-47.0); LYMPH # 1.8 K/uL (1.0-4.3); MEAN CELL VOLUME 86.6 fl (81.0-99.0); MEAN CORPUSCULAR HEMOGLOBIN 27.7 pg (27.0-31.0); MEAN PLATELET VOLUME 9.9 fl (7.2-11.7); MONO # 0.6 K/uL (0.0-0.8); NEUT # 7.1 K/uL (1.8-7.0); NEUT % 73.3 % (50.0-75.0); RED CELL DISTRIBUTION WIDTH 13.6 % (11.5-14.5); WHITE BLOOD COUNT 9.7 K/uL (4.8-10.8)
[2017-01-09] MEDS ORDERED: Acetylcysteine 20% Inhal Soln (4ml) PO STA (15:07)
[2017-01-09] MEDS ORDERED: Sodium Chloride 0.9% 1,000 ML IV STA (15:09)
[2017-01-09 15:17] LABS: BLOOD UREA NITROGEN 35 mg/dl (7-17); CALCIUM 9.9 mg/dL (8.4-10.2); CARBON DIOXIDE 25 mmol/L (22-30); CHLORIDE 103 mmol/L (98-107); GFR AFRICAN-AMERICAN > 60; GLUCOSE,RANDOM 285 mg/dL (65-105); SODIUM 142 mmol/l (132-148)
--- NOTE | 2017-01-09 19:17 | CP.PCM.HP ---
<Surjit Samson - Last Filed: 01/09/17 21:52> History of Present Illness - History of Present Illness History of Present Illness: 56 yo F with PMHx HTN, HLD, DM presented to ED sent via PMD due to abnormal finding on CTA of abdomen. Patient states feeling well though has long standing history of varicosity. Patient denies visual changes, palpitations, chest pain, sob, abdominal pain, dizziness, back pain, urinary/bowel symptoms. Patient denies redness, swelling, warmth, skin changes, pain on exertion, numbness, tingling, weakness, or paralysis of lower extremities. Patient states compliance with medications and states she took them this AM. No other complaints at this time. PMHx: HTN, HLD, DM Meds: * Metformin 1000 mg PO BID * Lisinopril/HCTZ 1 tab PO daily * Lovastatin 10 mg PO daily * Glipizide 10 mg PO BID * Metoprolol 12.5 mg PO Q12H * Amplodipine 10mg PO daily Allergies: NKDA Surgeries: debridement of an infected wound in her right ankle (states 2/2 DM) Social hx: Lives with family, works 12 hr shifts, Denies etoh, tobacco, or drug use. ED Course: Vitals unremarkable, afebrile normotensive PE: unremarkable except for trace bilateral lower extremity edema EKG: unremarkable Meds: NS bolus 1L x 1, Acetylcysteine x 1 Labs: remarkable for BUN 35 and Gluc 285 Imaging: CTA of lower extremities ordered Present on Admission - Present on Admission Any Indicators Present on Admission: No Review of Systems - Review of Systems All systems: reviewed and no additional remarkable complaints except (mentioned in HP) Past Patient History - Past Medical History & Family History Past Medical History?: Yes - Past Social History Smoking Status: Never Smoked - CARDIAC Hx Hypertension: Yes - RENAL Hx Chronic Kidney Disease: Yes - ENDOCRINE/METABOLIC Hx Endocrine Disorders: Yes Hx Diabetes Mellitus Type 2: Yes - MUSCULOSKELETAL/RHEUMATOLOGICAL Hx Falls: No - GASTROINTESTINAL Hx Gastroesophageal Reflux: Yes - PSYCHIATRIC Hx Substance Use: No - ANESTHESIA Hx Anesthesia: Yes Hx Anesthesia Reactions: No Hx Malignant Hyperthermia: No Meds Allergies/Adverse Reactions: Allergies Allergy/AdvReac Type Severity Reaction Status Date / Time No Known Allergies Allergy Unverified 07/08/16 18:36 Physical Exam - Constitutional Appears: Well, Non-toxic, No Acute Distress - Head Exam Head Exam: ATRAUMATIC, NORMAL INSPECTION, NORMOCEPHALIC - Eye Exam Eye Exam: EOMI, Normal appearance - Respiratory Exam Respiratory Exam: Clear to Auscultation Bilateral, NORMAL BREATHING PATTERN. absent: Decreased Breath Sounds, Rales, Rhonchi, Wheezes - Cardiovascular Exam Cardiovascular Exam: RRR, +S1, +S2 - GI/Abdominal Exam GI & Abdominal Exam: Normal Bowel Sounds, Soft. absent: Tenderness - Extremities Exam Extremities exam: Positive for: normal inspection, pedal edema (trace bilaterally). Negative for: calf tenderness, tenderness Additional comments: No obvious signs of claudication or mottling of skin. No pitting edema noted. Neurovascular intact. - Neurological Exam Neurological exam: Alert, Oriented x3 - Psychiatric Exam Psychiatric exam: Normal Affect, Normal Mood - Skin Skin Exam: Dry, Intact, Normal Color, Warm Results - Labs Result Diagrams: 01/09/17 14:00 01/09/17 14:00 Assessment & Plan - Assessment and Plan (Free Text) Assessment: 56 yo F with PMHx HTN, HLD, DM found to have occlusion of the left common iliac artery at its origin and xpne-ah-jhbkllrk stenosis at the proximal portion of the SMA approximately 60-[address] Angio Study at 01/07/17 reviewed. FINDINGS: The abdominal aorta is normal in caliber. No evidence of aneurysm or focal stenosis. 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 Moderate atherosclerotic disease at the left common iliac artery. There is no evidence of significant stenosis in the renal arteries. Celiac trunk is normal in caliber and shape. There is moderate stenosis approximately 60 percent at the proximal portion of the SMA. There are collateral arteries posterior to the distal abdominal aorta. The left kidney is smaller than the right. Focal atrophy/scarring at the lower pole of the left kidney is noted. There is also focal cortical defect at the upper pole of the right kidney. No evidence of hydronephrosis. The kidneys enhance symmetrically. Mild hepatomegaly and fzkd-pb-ziqvbgzp hepatic steatosis noted. No evidence of acute pathology in the GI system. IMPRESSION: No CTA evidence of significant stenosis in the renal arteries. 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 Akdb-vu-lclwwuxs stenosis at the proximal portion of the SMA approximately 60- 70 percent. Mild hepatomegaly and bbph-ml-ohvmjakd steatosis. The left kidney is smaller than the right , likely due to scarring/or infarction of the lower pole of the left kidney. Plan: (1) Iliac arterial stenosis - Asymptomatic, including symptoms of claudication - Case was discussed/reviewed at length with Interventional Radiology - Recommendation for Andiography of abdomen w/ ileofemoral runoff, pending - s/p Acetylcysteine and 1L NS bolus - Acetylcysteine tomorrow am and pm - IV hydration - Follow up CT results - Patient will need BMP tomorrow and in 2 days (which can be done as outpatient if necessary) (2) Hypertensive disease - Controlled, stable at this time - Continue home meds as prescribed [01/06/17] * Renal US Impression: Due to the relatively high renal artery to aortic velocity ratio in the proximal right renal artery, these images are suspicious for hemodynamically significant stenosis of the proximal right renal artery. Correlation with abdominal angiography could be obtained. Mildly increased echogenic renal cortices bilaterally. Correlate with renal function. - Continue to monitor vitals - Echo (12/2016): LV normal size, EF 55-60%, LV function normal, LV EF is within the normal range - EKG- normal sinus rhythm, normal ECG (3) HLD (hyperlipidemia) - Continue home meds (4) Diabetes mellitus - Continue home meds at this time except for metformin due to multiple contrast studies in recent days - HgbA1c 9.0 - Diabetic diet - Accucheck ACHS (5) DVT prophylaxis - SCDs <Vi Alejandro - Last Filed: 01/10/17 09:19> Results - Vital Signs Recent Vital Signs: Last Vital Signs Temp 98.3 F 01/10/17 08:35 Pulse 79 01/10/17 08:35 Resp 18 01/10/17 08:35 BP 169/84 H 01/10/17 08:35 Pulse Ox 98 01/10/17 08:35 - Labs Result Diagrams: 01/09/17 14:00 01/10/17 05:30 Labs: Laboratory Results - last 24 hr 01/09/17 01/10/17 01/10/17 22:55 05:30 06:05 Sodium 143 Potassium 4.6 Chloride 105 Carbon Dioxide 24 Anion Gap 19 BUN 26 H Creatinine 1.0 Est GFR ( Amer) > 60 Est GFR (Non-Af Amer) 57 POC Glucose (mg/dL) 223 H 216 H Random Glucose 212 H Calcium 9.5 Assessment & Plan - Assessment and Plan (Free Text) Assessment: ATTESTATION STATEMENT ATTENDING STATEMENT CASE DISCUSSED AT LENGTH WITH RESIDENT. CHART REVIEWED. CTA DONE RESULTS PENDING.AGREE WITH PLAN.
[2017-01-09] MEDS ORDERED: Iodixanol 320 MG/ML 100 ML BOTTLE IV ONE (19:24)
[2017-01-09] MEDS ORDERED: Sodium Chloride 0.9% 0 ML IV ONE (19:24)
[2017-01-09] MEDS ORDERED: Sodium Chloride 0.9% 100 ML ONE (19:25)
[2017-01-09] MEDS ORDERED: Sodium Chloride 0.9% 1,000 ML IV SCH ×2 (20:30→23:23)
--- NOTE | 2017-01-09 23:01 | CT ---
EXAM: CT Abdomen and Pelvis With Intravenous Contrast CT Left Lower Extremity With Intravenous Contrast CT Right Lower Extremity With Intravenous Contrast CLINICAL HISTORY: 56 years old, female; Signs and symptoms; Other: Bilateral leg pain; Prior surgery; Surgery date: 6+ months; Surgery type: Surgery of right ankle due to leg wound; Additional info: Leg pain. Iliac stenosis TECHNIQUE: Axial computed tomography images of the abdomen, pelvis and lower extremities with intravenous contrast during the arterial phase of enhancement. This CT exam was performed using one or more of the following dose reduction techniques: automated exposure control, adjustment of the mA and/or kV according to patient size, and/or use of iterative reconstruction technique. Coronal and sagittal reformatted images were created and reviewed. CONTRAST: 100 mL of visipaque administered intravenously. COMPARISON: US - ABDOMEN LIMITED 01/07/2017 10:13:14 AM FINDINGS: Lower thorax: No acute findings. VASCULATURE: Aorta: No acute findings. No abdominal aortic aneurysm. No dissection. Celiac trunk and mesenteric arteries: No acute findings. No occlusion or significant stenosis. Renal arteries: No acute findings. No occlusion or significant stenosis. Right iliac arteries: Right external iliac artery occludes at its origin and reconstitutes at the level of the right common femoral artery. Right common iliac artery demonstrates moderate atherosclerosis without significant stenosis. Right internal iliac artery is patent with mild atherosclerotic change. Right femoral/popliteal arteries: Right superficial femoral artery occludes at its origin. This reconstitute distally. The right deep femoral artery is patent. Right common femoral artery is patent. Right popliteal artery is patent. Right calf/foot arteries: The right trifurcation vessels are patent. There appears to be three-vessel runoff to the right ankle. Left iliac arteries: There is mild atherosclerosis of the distal abdominal aorta. 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 There is reconstitution at the level of the left internal and external iliac arteries. Left femoral/popliteal arteries: Left common femoral artery is patent. Left superficial femoral artery is patent with 2 focal moderate to mild to moderate stenoses distally. Left deep femoral artery is patent. Left popliteal artery is patent. Left calf/foot arteries: Left trifurcation vessels are intact. There appears to be three-vessel runoff to left ankle. ABDOMEN: Liver: Visualized liver is unremarkable. Gallbladder and bile ducts: The gallbladder is normal. No calcified stones. No ductal dilation. Pancreas: The pancreas is normal. No ductal dilation. Spleen: The visualized spleen is normal. Adrenals: AtThe adrenal glands are normal. Kidneys and ureters: Both kidneys demonstrate cortical defects compatible with prior areas of infection or infarction. There is no evidence of hydronephrosis. Stomach and bowel: Visualized stomach is decompressed. There is no evidence of intestinal obstruction. No mucosal thickening. Appendix: A normal appendix is identified. PELVIS: Bladder: Bladder is decompressed. Reproductive: The uterus is normal. ABDOMEN, PELVIS and LOWER EXTREMITIES: Intraperitoneal space: There is no evidence of free intraperitoneal fluid. There is no free intraperitoneal air. Bones/joints: There are mild degenerative changes present. Soft tissues: Unremarkable. Lymph nodes: There is bilateral inguinal lymphadenopathy. IMPRESSION: 1. There is bilateral inguinal lymphadenopathy. 2. There is mild atherosclerosis of the distal abdominal aorta. 3. 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 There is reconstitution at the level of the left internal and external iliac arteries. 4. Right external iliac artery occludes at its origin and reconstitutes at the level of the right common femoral artery. 5. Right superficial femoral artery occludes at its origin. This reconstitute distally. The right deep femoral artery is patent. 6. Three-vessel runoff appears intact to both ankles. 7. Left superficial femoral artery demonstrates 2 focal mild to moderate stenoses distally.
[2017-01-10 07:27] LABS: BLOOD UREA NITROGEN 26 mg/dl (7-17); CALCIUM 9.5 mg/dL (8.4-10.2); CARBON DIOXIDE 24 mmol/L (22-30); CHLORIDE 105 mmol/L (98-107); GFR AFRICAN-AMERICAN > 60; GLUCOSE,RANDOM 212 mg/dL (65-105); POTASSIUM 4.6 MMOL/L (3.6-5.0); SODIUM 143 mmol/l (132-148)
[2017-01-10 08:35] VITALS: BP 169/84; PULSE 79; RESP 18; TEMP 98.3; O2SAT 98
[2017-01-10] MEDS ORDERED: Acetylcysteine 20% Inhal Soln (4ml) PO SCH (09:00)
[2017-01-10] MEDS ORDERED: Patient's Own Med (Lisinopril/Hydrochlorothiazide [Lisinopril-Hctz 20-25 Mg Tab] 1 TAB) PO SCH (09:00)
--- NOTE | 2017-01-10 11:40 | CP.PCM.DIS ---
<Flaco Sharp - Last Filed: 01/10/17 13:12> Provider - Provider Date of Admission: 01/09/17 17:13 Attending physician: Gabriela Parsons MD Primary care physician: Osvaldo Polk MD Time Spent in preparation of Discharge (in minutes): 45 Hospital Course - Lab Results Lab Results: Most Recent Lab Values WBC 9.7 K/uL (4.8-10.8) 01/09/17 14:00 RBC 4.11 Mil/uL (3.80-5.20) 01/09/17 14:00 Hgb 11.4 g/dL (12.0-16.0) L 01/09/17 14:00 Hct 35.6 % (34.0-47.0) 01/09/17 14:00 MCV 86.6 fl (81.0-99.0) 01/09/17 14:00 MCH 27.7 pg (27.0-31.0) 01/09/17 14:00 MCHC 32.0 g/dL (33.0-37.0) L 01/09/17 14:00 RDW 13.6 % (11.5-14.5) 01/09/17 14:00 Plt Count 253 K/uL (130-400) 01/09/17 14:00 MPV 9.9 fl (7.2-11.7) 01/09/17 14:00 Neut % (Auto) 73.3 % (50.0-75.0) 01/09/17 14:00 Lymph % (Auto) 18.0 % (20.0-40.0) L 01/09/17 14:00 [place] % (Auto) 6.0 % (0.0-10.0) 01/09/17 14:00 Eos % (Auto) 1.8 % (0.0-4.0) 01/09/17 14:00 Baso % (Auto) 0.9 % (0.0-2.0) 01/09/17 14:00 Neut # 7.1 K/uL (1.8-7.0) H 01/09/17 14:00 Lymph # 1.8 K/uL (1.0-4.3) 01/09/17 14:00 [place] # 0.6 K/uL (0.0-0.8) 01/09/17 14:00 Eos # 0.2 K/uL (0.0-0.7) 01/09/17 14:00 Baso # 0.1 K/uL (0.0-0.2) 01/09/17 14:00 PT 10.4 SECONDS (9.6-11.2) 01/09/17 14:00 INR 1.00 (0.92-1.08) 01/09/17 14:00 APTT 25.0 SECONDS (23.3-32.5) 01/09/17 14:00 Sodium 143 mmol/l (132-148) 01/10/17 05:30 Potassium 4.6 MMOL/L (3.6-5.0) 01/10/17 05:30 Chloride 105 mmol/L (98-107) 01/10/17 05:30 Carbon Dioxide 24 mmol/L (22-30) 01/10/17 05:30 Anion Gap 19 (10-20) 01/10/17 05:30 BUN 26 mg/dl (7-17) H 01/10/17 05:30 Creatinine 1.0 mg/dL (0.7-1.2) 01/10/17 05:30 Est GFR ( Amer) > 60 01/10/17 05:30 Est GFR (Non-Af Amer) 57 01/10/17 05:30 POC Glucose (mg/dL) 216 mg/dL (65-110) H 01/10/17 06:05 Random Glucose 212 mg/dL (65-105) H 01/10/17 05:30 Calcium 9.5 mg/dL (8.4-10.2) 01/10/17 05:30 - Hospital Course Hospital Course: Patietn 56 y/o admitted for iialc artery occlusion on previous CT for abdominal angiogram.showed There is bilateral inguinal lymphadenopathy. There is mild atherosclerosis of the distal abdominal aorta. 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 There is reconstitution at the level of the left internal and external iliac arteries. Right external iliac artery occludes at its origin and reconstitutes at the level of the right common femoral artery. Right superficial femoral artery occludes at its origin. This reconstitute distally. The right deep femoral artery is patent. Three-vessel runoff appears intact to both ankles. Left superficial femoral artery demonstrates 2 focal mild to moderate stenoses distally. Duringthis admission patient denied any complain ambulating without dificulty , shealso denied any pain, nasuea,vomits diarrhea,. CP .palpations urinary or sleeping problems.BUN / Cr=25/1.0 stable . will give IV fluids and acetylcysteine pre and prost abdomen angiography. Tolerated weel will discharge patine and follow up with PMD and consider vascular Sx evaluations as outpatient. Discharge Exam - Head Exam Head Exam: ATRAUMATIC, NORMAL INSPECTION, NORMOCEPHALIC - Eye Exam Eye Exam: Normal appearance - Neck Exam Neck exam: Full Rom - Respiratory Exam Respiratory Exam: Clear to PA & Lateral - Cardiovascular Exam Cardiovascular Exam: REGULAR RHYTHM - GI/Abdominal Exam GI & Abdominal Exam: Normal Bowel Sounds - Extremities Exam Extremities exam: full ROM, normal capillary refill, pedal pulses present - Neurological Exam Neurological exam: Alert, Normal Gait, Oriented x3 - Psychiatric Exam Psychiatric exam: Normal Affect, Normal Mood - Skin Skin Exam: Normal Color Discharge Plan - Follow Up Plan Condition: FAIR Disposition: HOME/ ROUTINE Patient education suggested?: Yes Instructions: Diabetes Mellitus Type 2 in Adults (DC), Hypertension (DC), Hypertension (GEN) Additional Instructions: Abdomen Angiography report: There is bilateral inguinal lymphadenopathy. There is mild atherosclerosis of the distal abdominal aorta. 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 There is reconstitution at the level of the left internal and external iliac arteries. Right external iliac artery occludes at its origin and reconstitutes at the level of the right common femoral artery. Right superficial femoral artery occludes at its origin. This reconstitute distally. The right deep femoral artery is patent. Three-vessel runoff appears intact to both ankles. Left superficial femoral artery demonstrates 2 focal mild to moderate stenoses distally. f/u BPM ordered for 01/13/17 Referrals: Osvaldo Polk MD [Primary Care Provider] - <Vi Alejandro - Last Filed: 01/11/17 09:01> Provider - Provider Date of Admission: 01/09/17 17:13 Attending physician: Gabriela Parsons MD Primary care physician: Osvaldo Polk MD Hospital Course - Lab Results Lab Results: Most Recent Lab Values WBC 9.7 K/uL (4.8-10.8) 01/09/17 14:00 RBC 4.11 Mil/uL (3.80-5.20) 01/09/17 14:00 Hgb 11.4 g/dL (12.0-16.0) L 01/09/17 14:00 Hct 35.6 % (34.0-47.0) 01/09/17 14:00 MCV 86.6 fl (81.0-99.0) 01/09/17 14:00 MCH 27.7 pg (27.0-31.0) 01/09/17 14:00 MCHC 32.0 g/dL (33.0-37.0) L 01/09/17 14:00 RDW 13.6 % (11.5-14.5) 01/09/17 14:00 Plt Count 253 K/uL (130-400) 01/09/17 14:00 MPV 9.9 fl (7.2-11.7) 01/09/17 14:00 Neut % (Auto) 73.3 % (50.0-75.0) 01/09/17 14:00 Lymph % (Auto) 18.0 % (20.0-40.0) L 01/09/17 14:00 [place] % (Auto) 6.0 % (0.0-10.0) 01/09/17 14:00 Eos % (Auto) 1.8 % (0.0-4.0) 01/09/17 14:00 Baso % (Auto) 0.9 % (0.0-2.0) 01/09/17 14:00 Neut # 7.1 K/uL (1.8-7.0) H 01/09/17 14:00 Lymph # 1.8 K/uL (1.0-4.3) 01/09/17 14:00 [place] # 0.6 K/uL (0.0-0.8) 01/09/17 14:00 Eos # 0.2 K/uL (0.0-0.7) 01/09/17 14:00 Baso # 0.1 K/uL (0.0-0.2) 01/09/17 14:00 PT 10.4 SECONDS (9.6-11.2) 01/09/17 14:00 INR 1.00 (0.92-1.08) 01/09/17 14:00 APTT 25.0 SECONDS (23.3-32.5) 01/09/17 14:00 Sodium 143 mmol/l (132-148) 01/10/17 05:30 Potassium 4.6 MMOL/L (3.6-5.0) 01/10/17 05:30 Chloride 105 mmol/L (98-107) 01/10/17 05:30 Carbon Dioxide 24 mmol/L (22-30) 01/10/17 05:30 Anion Gap 19 (10-20) 01/10/17 05:30 BUN 26 mg/dl (7-17) H 01/10/17 05:30 Creatinine 1.0 mg/dL (0.7-1.2) 01/10/17 05:30 Est GFR ( Amer) > 60 01/10/17 05:30 Est GFR (Non-Af Amer) 57 01/10/17 05:30 POC Glucose (mg/dL) 254 mg/dL (65-110) H 01/10/17 11:51 Random Glucose 212 mg/dL (65-105) H 01/10/17 05:30 Calcium 9.5 mg/dL (8.4-10.2) 01/10/17 05:30 Discharge Exam - Skin Additional comments: ATTESTATION NOTE ATTENDING NOTE PATIENT SEEN AND EXAMINED. NO COMPLAINTS. CASE DISCUSSED WITH RESIDENT, AGREE WITH PLAN. PATIENT WILL BE DISCHARGED TO OUTPATIENT FOLLOW UP THIS WEEK AT [facility].
== END 2017-01-10 15:07 | disposition home or self-care (01) ==
LOC: H.ER 12:30 → INTOOBSV 17:13 → H.ERHOLD 17:13 → H.MEDSURG1 20:50
PROVIDERS: ADMIT Family Medicine Geriatric Medicine; ATTEND Family Medicine Geriatric Medicine
DX: I74.5 Embolism and thrombosis of iliac artery (principal); E78.5 Hyperlipidemia, unspecified; I12.9 Hypertensive chronic kidney disease with stage 1 through stage 4 chronic kidney disease, or unspecified chronic kidney disease; N18.9 Chronic kidney disease, unspecified; E11.22 Type 2 diabetes mellitus with diabetic chronic kidney disease; K21.9 Gastro-esophageal reflux disease without esophagitis

== ENCOUNTER 2017-10-15 10:48 | Emergency (ER) | payer SELFPAY ==
[2017-10-15 10:55] VITALS: BMI 27.1
[2017-10-15] MEDS ORDERED: Piperacillin/Tazobact 3.375 GM in Sodium Chloride 0.9% 100 ML IVPB STA (11:24)
[2017-10-15] MEDS ORDERED: Piperacillin/Tazobact 3.375 gm Inj IVPB ONE (11:49)
[2017-10-15] MEDS ORDERED: Vancomycin 1 g Inj ONE (11:49)
--- NOTE | 2017-10-15 11:58 | ED PDOC ---
HPI: General Adult Time Seen by Provider: 10/15/17 11:10 Chief Complaint (Nursing): Lower Extremity Problem/Injury History Per: Patient, Family (daughter) Additional Complaint(s): Pt. states 3 days she's had a painful/pruritic rash on the R lower leg. States in May 2017 she went to a nail salon and sustained a skin rash at the same area. She was advised by her PMD to keep rash moist. Pt. states 3 days ago prior to the onset of the new rash she applied calamine, betadine, and a triple antibiotic. Shortly after applying the new meds blistering and redness developed. Denies fever, trauma, numbness, tingling. Past Medical History Reviewed: Historical Data, Nursing Documentation, Vital Signs Vital Signs: Last Vital Signs Temp 97.8 F 10/15/17 10:52 Pulse 71 10/15/17 10:52 Resp 20 10/15/17 10:52 BP 154/55 H 10/15/17 10:52 Pulse Ox 97 10/15/17 12:01 - Medical History PMH: Diabetes, GERD, HTN, Hypercholesterolemia, Hyperlipidemia, Chronic Kidney Disease Denies: HIV Other PMH: "blood clot in L leg" - Surgical History Other surgeries: "L leg infection - 5 years ago" - Family History Family History: States: Diabetes, Hypertension - Home Medications Home Medications: Ambulatory Orders Medication Instructions Recorded Lisinopril/Hydrochlorothiazide 1 tab PO DAILY 07/08/16 [Lisinopril-Hctz 20-25 mg Tab] Lovastatin 10 mg PO DAILY 07/08/16 Metformin HCl [Glucophage] 1,000 mg PO BID 07/08/16 Patient Own Control 1 tab PO BID 01/05/17 GlipiZIDE [Glucotrol] 10 mg PO BID tab 01/07/17 Metoprolol Tartrate [Lopressor] 12.5 mg PO Q12 tab 01/07/17 amLODIPine [Norvasc] 10 mg PO DAILY tab 01/07/17 Aspirin [Aspirin Chewable] 81 mg PO DAILY 03/26/17 Sulfamethoxazole/Trimethoprim 2 tab PO BID #28 tab 10/15/17 [Bactrim DS 800 mg-160 mg] - Allergies Allergies/Adverse Reactions: Allergies Allergy/AdvReac Type Severity Reaction Status Date / Time No Known Allergies Allergy Unverified 07/08/16 18:36 Review of Systems ROS Statement: Except As Marked, All Systems Reviewed And Found Negative Physical Exam - Physical Exam Appears: Positive for: Well, Non-toxic, No Acute Distress Skin: Positive for: Normal Color, Warm. Negative for: Rash Eye Exam: Positive for: Normal appearance Pulses-Dorsalis Pedis (L): 2+ Pulses-Dorsalis Pedis (R): 2+ Extremity: Positive for: Normal ROM, Other (R medial malleolus with scabbing and surrounding erythema) - Laboratory Results Result Diagrams: 10/15/17 11:54 10/15/17 12:39 - ECG ECG: Positive for: Interpreted By Me ECG Rhythm: Positive for: Sinus Rhythm. Negative for: ST/T Changes Rate: 69 O2 Sat by Pulse Oximetry: 97 - Radiology X-Ray: Interpreted by Me (Tib/Fib x-ray) X-Ray Interpretation: No Acute Disease - Progress ED Course And Treament: Labs ordered. Zosyn IV, vancomycin IV ordered. 1143 K 5.1 EKG, repeat K ordered. 1239 Pt. evaluated by Shi, podiatry resident, who recommends silvadene dressing to be placed and to f/u with Dr. Layne. Silvadene dressing placed by Shi. K 5.[address]-T wave changes. Case d/w Dr. Castro who agrees with care and states since Creatinine is normal but does not need further testing or treatment. Disposition - Clinical Impression Clinical Impression: Contact dermatitis, Hyperkalemia - Patient ED Disposition Is Patient to be Admitted: No - Disposition Referrals: Bob Layne DPM [Staff Provider] - Disposition: Routine/Home Disposition Time: 13:00 Condition: STABLE Additional Instructions: Follow up with Dr. Layne, development trainer, in 1 week without fail. Prescriptions: Sulfamethoxazole/Trimethoprim [Bactrim DS 800 mg-160 mg] 2 tab PO BID #28 tab Instructions: Contact Dermatitis (ED), Hyperkalemia (ED) Forms: [employer] (Malawian) Print Language: CROATIAN
--- NOTE | 2017-10-15 12:03 | RAD ---
PROCEDURE: Ileal HISTORY: pain COMPARISON: None available. TECHNIQUE: Frontal and lateral views obtained. FINDINGS: BONES: No fracture or destructive lesion. JOINT SPACES: Unremarkable. OTHER FINDINGS: None. IMPRESSION: Unremarkable radiographs of the right tibia and fibula.
[2017-10-15 12:04] LABS: BASO # 0.1 K/uL (0.0-0.2); BASO % 0.6 % (0.0-2.0); EOS # 0.2 K/uL (0.0-0.7); EOS % 1.5 % (0.0-4.0); HEMOGLOBIN 11.4 g/dL (12.0-16.0); LYMPH # 1.7 K/uL (1.0-4.3); LYMPH % 16.5 % (20.0-40.0); MEAN CELL VOLUME 83.6 fl (81.0-99.0); MEAN CORPUSCULAR HEMOGLOBIN 27.5 pg (27.0-31.0); MEAN CORPUSCULAR HGB CONC 32.9 g/dL (33.0-37.0); MEAN PLATELET VOLUME 9.4 fl (7.2-11.7); MONO # 0.7 K/uL (0.0-0.8); NEUT # 7.8 K/uL (1.8-7.0); NEUT % 74.4 % (50.0-75.0); NRBC % 0.1 % (0.0-0.0); RBC 4.14 Mil/uL (3.80-5.20); RED CELL DISTRIBUTION WIDTH 14.1 % (11.5-14.5); WHITE BLOOD COUNT 10.5 K/uL (4.8-10.8)
[2017-10-15 12:12] LABS: ALBUMIN 4.3 g/dL (3.5-5.0)
[2017-10-15 12:13] LABS: ALB/GLOB RATIO 1.1 (1.0-2.1)
[2017-10-15] MEDS ORDERED: Silver Sulfadiazine 1% CREAM (50 gm) TOP STA (13:28)
--- NOTE | 2017-10-15 13:46 | CP.PCM.CON ---
History of Present Illness - History of Present Illness History of Present Illness: 57 y/o female with PMHx of diabetes mellitus presents to the ED with complaints of right ankle pain. Patient states she has had irritation with mild redness to the inside of the ankle for several months since going to a salon and using a foot bath. Patient denies any history of foot ulceration. She states that it was itching a few days ago and she put calamine lotion. She states that since then, the area turned very red and abnormal looking. She admits that the ankle area has been slightly swollen the last three days. She denies noticing any pus or drainage from the area. Denies F/C/N/V/CP/SOB. PMH: blood clot in left thigh, awaiting stent placement PSH: wound closure/vein surgery R lower leg All: NKDA Social: denies EtOH, cigarette or drug use FamHx: denies Review of Systems - Review of Systems All systems: reviewed and no additional remarkable complaints except (per HPI) Past Patient History - Past Medical History & Family History Past Medical History?: Yes - Past Social History Smoking Status: Never Smoked - CARDIAC Hx Hypercholesterolemia: Yes Hx Hypertension: Yes - PULMONARY Hx Respiratory Disorders: No - NEUROLOGICAL Hx Neurological Disorder: No - HEENT Hx HEENT Problems: No - RENAL Hx Chronic Kidney Disease: Yes - ENDOCRINE/METABOLIC Hx Endocrine Disorders: Yes Hx Diabetes Mellitus Type 2: Yes - HEMATOLOGICAL/ONCOLOGICAL Hx Human Immunodeficiency Virus (HIV): No - INTEGUMENTARY Hx Dermatological Problems: No - MUSCULOSKELETAL/RHEUMATOLOGICAL Hx Falls: No - GASTROINTESTINAL Hx Gastroesophageal Reflux: Yes - GENITOURINARY/GYNECOLOGICAL Hx Genitourinary Disorders: No - PSYCHIATRIC Hx Psychophysiologic Disorder: No Hx Substance Use: No - SURGICAL HISTORY Hx Surgeries: Yes Other/Comment: Right ankle Debridment 5yrs ago - ANESTHESIA Hx Anesthesia: Yes Hx Anesthesia Reactions: No Hx Malignant Hyperthermia: No Meds Home Medications: Home Medication List Medication Instructions Recorded Confirmed Type Sulfamethoxazole/Trimethoprim 2 tab PO BID #28 tab 10/15/17 Rx [Bactrim DS 800 mg-160 mg] Allergies/Adverse Reactions: Allergies Allergy/AdvReac Type Severity Reaction Status Date / Time No Known Allergies Allergy Unverified 07/08/16 18:36 Physical Exam - Constitutional Appears: Well, Non-toxic, No Acute Distress - Extremities Exam Additional comments: Vasc: DP/PT pulses palpable 2/4 B/L. Temperature gradient warm to cool B/L. Localized non pitting edema to R ankle. CFT < 3 sec to all digits Neuro: Protective sensation intact via SWMF 10/10 B/L Derm: Circular 5cm diameter erythematous rash with pinpoint hyperpigmented vesicles noted to periphery. Central aspect of rash is hypopigmented and blanched in color but skin remains intact. No drainage or purulence, no malodor , no streaking or ascending cellulitis Ortho: Tenderness to palpation of medial ankle at rash site as well as lateral ankle - Neurological Exam Neurological exam: Alert, Oriented x3 - Psychiatric Exam Psychiatric exam: Normal Affect, Normal Mood - Skin Skin Exam: Rash, Warm Results - Vital Signs Recent Vital Signs: Last Vital Signs Temp 97.8 F 10/15/17 10:52 Pulse 69 10/15/17 13:38 Resp 20 10/15/17 10:52 BP 154/55 H 10/15/17 10:52 Pulse Ox 97 10/15/17 13:38 - Labs Result Diagrams: 10/15/17 11:54 10/15/17 12:39 Labs: Laboratory Results - last 24 hr 10/15/17 10/15/17 10/15/17 11:54 11:54 12:39 WBC 10.5 RBC 4.14 Hgb 11.4 L Hct 34.6 MCV 83.6 MCH 27.5 MCHC 32.9 L RDW 14.1 Plt Count 223 MPV 9.4 Neut % (Auto) 74.4 Lymph % (Auto) 16.5 L [place] % (Auto) 7.0 Eos % (Auto) 1.5 Baso % (Auto) 0.6 Neut # 7.8 H Lymph # 1.7 [place]iken # 0.7 Eos # 0.2 Baso # 0.1 Sodium 139 Potassium 5.1 H 5.3 H Chloride 103 Carbon Dioxide 24 Anion Gap 17 BUN 31 H Creatinine 1.2 Est GFR ( Amer) 56 Est GFR (Non-Af Amer) 46 Random Glucose 242 H Calcium 10.0 Total Bilirubin 0.3 AST 34 ALT 43 Alkaline Phosphatase 195 H Total Protein 8.3 H Albumin 4.3 Globulin 4.0 H Albumin/Globulin Ratio 1.1 Assessment & Plan - Assessment and Plan (Free Text) Assessment: 57 y/o female with medial malleolar erythematous rash, likely secondary to contact dermatitis Plan: Pt seen and evaluated in ED Discussed with attending Dr. Layne Labs and vitals reviewed- afebrile, WBC 10.5 Tib/fib x-rays reviewed, reveal no acute fracture or dislocation, no cortical erosive changes evident Applied Silvadene cream to rash and dressed with DSD and GOPI Rx Temovate cream to be applied TID ED to dispense PO Bactrim Pt advised to follow up with Dr. Layne in his office within 1 week Thank you for this consult
[2017-10-15] MEDS ORDERED: Silver Sulfadiazine 1% CREAM (50 gm) ONE (14:41)
[2017-10-15 15:28] VITALS: BP 128/79; PULSE 75; RESP 14; TEMP 98; O2SAT 100
--- NOTE | 2017-10-16 10:52 | CARD ---
APPROVED REPORT EKG Measurement Heart [id number] <Conclusion> Normal sinus rhythm Normal ECG
== END 2017-10-15 15:27 | disposition home or self-care (01) ==
LOC: H.ER 10:48
DX: L25.9 Unspecified contact dermatitis, unspecified cause (principal); M79.604 Pain in right leg; E78.00 Pure hypercholesterolemia, unspecified; E87.5 Hyperkalemia; I12.9 Hypertensive chronic kidney disease with stage 1 through stage 4 chronic kidney disease, or unspecified chronic kidney disease; K21.9 Gastro-esophageal reflux disease without esophagitis; Z79.82 Long term (current) use of aspirin
CPT/HCPCS: 73590; 80053; 84132; 85025; 87040; 93005; 99285; J2543

== ENCOUNTER 2018-05-01 14:53 | Emergency (ER) | payer OTHER ==
[2018-05-01 14:54] VITALS: BMI 27.1
[2018-05-01 14:59] VITALS: BP 133/76; PULSE 67; RESP 18; TEMP 98.6; O2SAT 100
[2018-05-01] MEDS ORDERED: methylPREDNISolone 60 MG in Sodium Chloride 0.9% 50 ML IM STA (15:05)
[2018-05-01] MEDS ORDERED: Famotidine 40 MG/5 ML PO STA (15:05)
--- NOTE | 2018-05-01 15:09 | ED PDOC ---
HPI: Allergic Reaction Time Seen by Provider: 05/01/18 15:05 Chief Complaint (Nursing): Allergic Reaction Chief Complaint (Provider): Allergic Reaction History Per: Patient History/Exam Limitations: no limitations Onset/Duration Of Symptoms: Days (1x) Current Symptoms Are (Timing): Still Present Possible Cause: Food Home/EMS Treatment: Benadryl Additional Complaint(s): 57 year old female presents to ED for an evaluation of an allergic reaction. States she woke up with pruritic rash on face that is traveling to neck and back area. Patient states she had fried chicken yesterday without any reaction. Denies shortness of breath, chest pain, throat swelling, sore throat, history of allergic reaction or fever. Of note: patient took 50mg of Benadryl prior to arrival. PMD: No Family Provider Past Medical History Reviewed: Historical Data, Nursing Documentation, Vital Signs Vital Signs: Last Vital Signs Temp 98.6 F 05/01/18 14:56 Pulse 67 05/01/18 14:56 Resp 18 05/01/18 14:56 BP 133/76 05/01/18 14:56 Pulse Ox 100 05/01/18 14:56 - Medical History PMH: Diabetes, GERD, HTN, Hypercholesterolemia, Hyperlipidemia, Chronic Kidney Disease Denies: HIV - Family History Family History: States: Diabetes, Hypertension - Home Medications Home Medications: Ambulatory Orders Medication Instructions Recorded Lisinopril/Hydrochlorothiazide 1 tab PO DAILY 07/08/16 [Lisinopril-Hctz 20-25 mg Tab] Lovastatin 10 mg PO DAILY 07/08/16 Metformin HCl [Glucophage] 1,000 mg PO BID 07/08/16 Patient Own Control 1 tab PO BID 01/05/17 GlipiZIDE [Glucotrol] 10 mg PO BID tab 01/07/17 Metoprolol Tartrate [Lopressor] 12.5 mg PO Q12 tab 01/07/17 amLODIPine [Norvasc] 10 mg PO DAILY tab 01/07/17 Aspirin [Aspirin Chewable] 81 mg PO DAILY 03/26/17 Clobetasol 0.05% [Temovate 0.05%] 1 applic TOP BID #1 tube 10/15/17 Sulfamethoxazole/Trimethoprim 2 tab PO BID #28 tab 10/15/17 [Bactrim DS 800 mg-160 mg] Famotidine [Pepcid] 40 mg PO DAILY PRN #14 tab 05/01/18 Methylprednisolone [Medrol Dose 4 mg PO DAILY #21 mg 05/01/18 Pack (21 tabs)] - Allergies Allergies/Adverse Reactions: Allergies Allergy/AdvReac Type Severity Reaction Status Date / Time No Known Allergies Allergy Unverified 05/01/18 14:56 Review of Systems ROS Statement: Except As Marked, All Systems Reviewed And Found Negative Constitutional: Negative for: Fever ENT: Negative for: Throat Pain, Throat Swelling Cardiovascular: Negative for: Chest Pain Respiratory: Negative for: Shortness of Breath Skin: Positive for: Rash (on face, neck and back area) Physical Exam - Reviewed Nursing Documentation Reviewed: Yes Vital Signs Reviewed: Yes - Physical Exam Appears: Positive for: Non-toxic, No Acute Distress Head Exam: Positive for: ATRAUMATIC, NORMAL INSPECTION, NORMOCEPHALIC Skin: Positive for: Rash (scattered erythematous maculopapular rash on face, neck , upper back area) Eye Exam: Positive for: Normal appearance ENT: Positive for: Normal ENT Inspection (airway patent, no trismus, no drooling ) Neck: Positive for: Normal, Painless ROM, Supple Cardiovascular/Chest: Positive for: Regular Rate, Rhythm. Negative for: Murmur Respiratory: Positive for: Normal Breath Sounds. Negative for: Respiratory Distress Neurologic/Psych: Positive for: Alert, Oriented (x3) - ECG O2 Sat by Pulse Oximetry: 100 (RA) Pulse Ox Interpretation: Normal Disposition - Clinical Impression Clinical Impression: Urticaria - Patient ED Disposition Is Patient to be Admitted: No - Disposition Referrals: [facility] [Outside] Disposition: Routine/Home Disposition Time: 15:07 Condition: IMPROVED Additional Instructions: ALEJANDRA TEMPLE, thank you for letting us take care of you today. Your provider was Matty Munroe MD and you were treated for POSS ALLERGIC REACTION. The emergency medical care you received today was directed at your acute symptoms. If you were prescribed any medication, please fill it and take as directed. It may take several days for your symptoms to resolve. Return to the Emergency Department if your symptoms worsen, do not improve, or if you have any other problems. Please contact your doctor or call one of the physicians/clinics you have been referred to that are listed on the Patient Visit Information form that is included in your discharge packet. Bring any paperwork you were given at discharge with you along with any medications you are taking to your follow up visit. Our treatment cannot replace ongoing medical care by a primary care provider outside of the emergency department. Thank you for allowing the [facility] team to be part of your care today. If you had an X-Ray or CT scan: A Radiologist will review the ED reading if any change in treatment is needed we will contact you. If you had a blood, urine, or wound culture: It will take several days for the results, if any change in treatment is needed we will contact you. If you had an STI test: It will take 48 hours for the results. Please call after 1 week if you have not heard back. Prescriptions: Famotidine [Pepcid] 40 mg PO DAILY PRN #14 tab PRN Reason: itching Methylprednisolone [Medrol Dose Pack (21 tabs)] 4 mg PO DAILY #21 mg Instructions: Hives (DC) Forms: [employer] (French) Print Language: SAMMARINESE Medical Decision Making Medical Decision Making: Time: 1505 Initial Impression: rash Initial Plan: --Pepcid 40mg PO --SOLU-Medrol 60mg Patient advised to follow-up with potato chip sorter or cloth weaver and avoid eating the food she has last night. Clinical Impression: Urticaria Upon provider evaluation patient is medically stable, and requires no further treatment in the ED at this time. Patient will be discharged with Pepcid 40mg for itiching and Medrol Dose Pack. Counseling was provided and all questions were answered regarding diagnosis. There is agreement to discharge plan. Return if symptoms persist or worsen. Scribe Attestation: Documented by Rinku Bell, acting as a scribe for John Stubbs PA-C. Provider Scribe Attestation: All medical record entries made by the Scribe were at my direction and personally dictated by me. I have reviewed the chart and agree that the record accurately reflects my personal performance of the history, physical exam, medical decision making, and the department course for this patient. I have also personally directed, reviewed, and agree with the discharge instructions and disposition.
== END 2018-05-01 15:39 | disposition home or self-care (01) ==
LOC: H.ER 14:53
DX: L50.9 Urticaria, unspecified (principal); L50.0 Allergic urticaria; T78.40XA Allergy, unspecified, initial encounter; I12.9 Hypertensive chronic kidney disease with stage 1 through stage 4 chronic kidney disease, or unspecified chronic kidney disease; E78.00 Pure hypercholesterolemia, unspecified; N18.9 Chronic kidney disease, unspecified; Z79.82 Long term (current) use of aspirin; Z79.84 Long term (current) use of oral hypoglycemic drugs; E11.9 Type 2 diabetes mellitus without complications
CPT/HCPCS: 96372; 99282; J2930

== ENCOUNTER 2018-05-05 23:01 | Emergency (ER) | payer OTHER ==
[2018-05-05 23:01] VITALS: BMI 27.1
[2018-05-06] MEDS ORDERED: DiphenhydrAMINE 50 mg/ml Inj ONE
[2018-05-06] MEDS: Sodium Chloride 0.9% 1,000 ML IV STA (00:11)
[2018-05-06] MEDS: DiphenhydrAMINE 50 mg/ml Inj IV STA (00:13)
[2018-05-06 00:38] LABS: BASO # 0.1 K/uL (0.0-0.2); BASO % 0.8 % (0.0-2.0); EOS % 6.6 % (0.0-4.0); HEMOGLOBIN 12.6 g/dL (12.0-16.0); LYMPH # 4.2 K/uL (1.0-4.3); LYMPH % 26.7 % (20.0-40.0); MEAN CELL VOLUME 86.2 fl (81.0-99.0); MEAN CORPUSCULAR HGB CONC 33.6 g/dL (33.0-37.0); MEAN PLATELET VOLUME 9.1 fl (7.2-11.7); MONO # 1.1 K/uL (0.0-0.8); MONO % 7.1 % (0.0-10.0); NEUT # 9.2 K/uL (1.8-7.0); NEUT % 58.8 % (50.0-75.0); RBC 4.33 Mil/uL (3.80-5.20); RED CELL DISTRIBUTION WIDTH 13.4 % (11.5-14.5); WHITE BLOOD COUNT 15.7 K/uL (4.8-10.8)
--- NOTE | 2018-05-06 00:44 | ED PDOC ---
HPI: Allergic Reaction Time Seen by Provider: 05/05/18 23:28 Chief Complaint (Nursing): Allergic Reaction Chief Complaint (Provider): Allergic Reaction History Per: Patient History/Exam Limitations: no limitations Onset/Duration Of Symptoms: Days (x4) Current Symptoms Are (Timing): Still Present Additional Complaint(s): 57 year old [place] women with a history of dm, htn, dyslipidemia, and left foot surgery present to the ED with allergic reaction. Patient was seen in this ED 4 days ago for an allergic reaction. At the time, she was discharged with medrol and pepcid but only took medrol. As per family, her symptoms improved at the time, but worsened today, prompting visit to the ED. Patient has an itchy rash, swelling around eyes and lips, and a scratchy throat but denies difficulty breathing, difficulty talking or change in vocal quality. PMD: Dr. Avial Past Medical History Reviewed: Historical Data, Nursing Documentation, Vital Signs Vital Signs: Last Vital Signs Temp 98.7 F 05/05/18 23:05 Pulse 78 05/05/18 23:05 Resp 16 05/05/18 23:05 BP 173/89 H 05/05/18 23:05 Pulse Ox 100 05/05/18 23:05 - Medical History PMH: Diabetes, GERD, HTN, Hypercholesterolemia, Hyperlipidemia, Chronic Kidney Disease Denies: HIV - Surgical History Other surgeries: Left foot surgery - Family History Family History: States: Diabetes, Hypertension - Home Medications Home Medications: Ambulatory Orders Medication Instructions Recorded Lisinopril/Hydrochlorothiazide 1 tab PO DAILY 07/08/16 [Lisinopril-Hctz 20-25 mg Tab] Lovastatin 10 mg PO DAILY 07/08/16 Metformin HCl [Glucophage] 1,000 mg PO BID 07/08/16 Patient Own Control 1 tab PO BID 01/05/17 GlipiZIDE [Glucotrol] 10 mg PO BID tab 01/07/17 Metoprolol Tartrate [Lopressor] 12.5 mg PO Q12 tab 01/07/17 amLODIPine [Norvasc] 10 mg PO DAILY tab 01/07/17 Aspirin [Aspirin Chewable] 81 mg PO DAILY 03/26/17 Clobetasol 0.05% [Temovate 0.05%] 1 applic TOP BID #1 tube 10/15/17 Sulfamethoxazole/Trimethoprim 2 tab PO BID #28 tab 10/15/17 [Bactrim DS 800 mg-160 mg] Famotidine [Pepcid] 40 mg PO DAILY PRN #14 tab 05/01/18 Methylprednisolone [Medrol Dose 4 mg PO DAILY #21 mg 05/01/18 Pack (21 tabs)] Cetirizine HCl [Zyrtec] 10 mg PO QAM #10 capsule 05/06/18 - Allergies Allergies/Adverse Reactions: Allergies Allergy/AdvReac Type Severity Reaction Status Date / Time No Known Allergies Allergy Verified 05/05/18 23:05 Review of Systems ROS Statement: Except As Marked, All Systems Reviewed And Found Negative Constitutional: Positive for: Other (swollen lips) Eyes: Positive for: Other (swelling around eyes) ENT: Positive for: Other (scratchy throat) Skin: Positive for: Rash (itchy) Physical Exam - Reviewed Nursing Documentation Reviewed: Yes Vital Signs Reviewed: Yes - Physical Exam Appears: Positive for: Non-toxic, No Acute Distress Skin: Positive for: Warm, Dry Eye Exam: Positive for: EOMI, PERRL, Periorbital swelling (bilateral) ENT: Positive for: Other (upper lip edema) Neck: Positive for: Normal, Painless ROM Cardiovascular/Chest: Positive for: Regular Rate, Rhythm. Negative for: Murmur Respiratory: Positive for: Normal Breath Sounds. Negative for: Respiratory Distress Gastrointestinal/Abdominal: Positive for: Normal Exam, Soft. Negative for: Tenderness Extremity: Positive for: Normal ROM (upper and lower) Neurologic/Psych: Positive for: Alert, Oriented (x3) - Laboratory Results Result Diagrams: 05/06/18 00:10 05/06/18 00:10 - ECG O2 Sat by Pulse Oximetry: 100 (RA) Pulse Ox Interpretation: Normal Disposition - Clinical Impression Clinical Impression: Acute allergic reaction - Disposition Referrals: Kenneth Avila MD [Primary Care Provider] - Disposition Time: 02:16 Condition: IMPROVED Prescriptions: Cetirizine HCl [Zyrtec] 10 mg PO QAM #10 capsule Instructions: Allergy Skin Testing Forms: [employer] (Belarusian) Medical Decision Making Medical Decision Making: Time: 23:40 Initial Impression: relapsing allergic reaction Initial Plan: --labs --Trial of IV Pepcid, solu-Medrol, and Benadryl Time: 2:16 --Labs showed no clinically significant results, but patient has leukocytosis, likely steroid induced. Patient's symptoms have improved, and she is medically cleared for discharge home. She will follow up with her PMD, Dr. Avila at the clinic for an field spec referral. Diagnosis allergic reaction. Scribe Attestation: Documented by Alejandra Looney, acting as a scribe for Juan Antonio Delgado MD Provider Scribe Attestation: All medical record entries made by the Scribe were at my direction and personally dictated by me. I have reviewed the chart and agree that the record accurately reflects my personal performance of the history, physical exam, medical decision making, and the department course for this patient. I have also personally directed, reviewed, and agree with the discharge instructions and disposition.
[2018-05-06 00:52] LABS: PARTIAL THROMBOPLASTIN TIME 26.5 Seconds (25.6-37.1); PROTHROMBIN TIME 10.5 Seconds (9.8-13.1)
[2018-05-06 01:00] LABS: ALB/GLOB RATIO 1.1 (1.0-2.1); ALBUMIN 4.3 g/dL (3.5-5.0)
[2018-05-06 02:33] VITALS: BP 136/71; PULSE 70; RESP 20; TEMP 98.6; O2SAT 99
== END 2018-05-06 02:41 | disposition home or self-care (01) ==
LOC: H.ER 23:01
DX: T78.40XA Allergy, unspecified, initial encounter (principal); E11.22 Type 2 diabetes mellitus with diabetic chronic kidney disease; E78.00 Pure hypercholesterolemia, unspecified; I12.9 Hypertensive chronic kidney disease with stage 1 through stage 4 chronic kidney disease, or unspecified chronic kidney disease; Z79.84 Long term (current) use of oral hypoglycemic drugs; Z79.82 Long term (current) use of aspirin; K21.9 Gastro-esophageal reflux disease without esophagitis; D72.829 Elevated white blood cell count, unspecified
CPT/HCPCS: 80053; 82948; 83880; 85025; 85610; 85730; 96361; 96374; 96375; 99283; J1200; J2930; J7030

== ENCOUNTER 2018-05-09 13:41 | Observation (INO) | payer OTHER, SELFPAY ==
[2018-05-09 13:48] VITALS: BMI 27.8
[2018-05-09] MEDS ORDERED: DiphenhydrAMINE 50 mg/ml Inj IVP STA (14:13)
[2018-05-09] MEDS ORDERED: DiphenhydrAMINE 50 mg/ml Inj ONE ×2 (14:24→22:43)
[2018-05-09 14:47] LABS: BASO # 0.1 K/uL (0.0-0.2); BASO % 0.7 % (0.0-2.0); HEMOGLOBIN 12.7 g/dL (12.0-16.0); LYMPH # 2.6 K/uL (1.0-4.3); LYMPH % 18.8 % (20.0-40.0); MEAN CELL VOLUME 85.9 fl (81.0-99.0); MEAN CORPUSCULAR HEMOGLOBIN 29.3 pg (27.0-31.0); MEAN CORPUSCULAR HGB CONC 34.1 g/dL (33.0-37.0); MEAN PLATELET VOLUME 9.3 fl (7.2-11.7); MONO # 0.8 K/uL (0.0-0.8); MONO % 5.6 % (0.0-10.0); NEUT # 9.4 K/uL (1.8-7.0); NEUT % 67.9 % (50.0-75.0); NRBC % 0.1 % (0.0-0.0); RBC 4.34 Mil/uL (3.80-5.20); RED CELL DISTRIBUTION WIDTH 13.3 % (11.5-14.5); WHITE BLOOD COUNT 13.9 K/uL (4.8-10.8)
--- NOTE | 2018-05-09 14:56 | ED PDOC ---
HPI: Allergic Reaction Time Seen by Provider: 05/09/18 14:13 Chief Complaint (Nursing): Abnormal Skin Integrity Chief Complaint (Provider): Allergic Reaction History Per: Patient History/Exam Limitations: no limitations Onset/Duration Of Symptoms: Days Possible Cause: Medication Associated Symptoms: Skin Rash, Swelling, Itching Home/EMS Treatment: Steroids Additional Complaint(s): 57 year old female with past medical history of hypertension presents to the emergency department complaining of an allergic reaction. Patient states that this is her third visit to the ED secondary to allergic reaction to an unknown substance. She reports that she was initially seen on May 01 for a macular papular rash after eating chicken. Patient was given solumderol 360 in the ED as well as a prednisone taper. Patient returned May 05 with swelling to the eyes, lips and throat and was given another dose of solumedrol and discharged with pepsid and zyrtec. She reports that she finished her dose of solumedrol and then the symptoms returned. Denies food association. Past Medical History Reviewed: Historical Data, Nursing Documentation, Vital Signs Vital Signs: Last Vital Signs Temp 98.4 F 05/09/18 13:47 Pulse 92 H 05/09/18 13:47 Resp 16 05/09/18 13:47 BP 161/78 H 05/09/18 13:47 Pulse Ox 100 05/09/18 13:47 - Medical History PMH: Diabetes, GERD, HTN, Hypercholesterolemia, Hyperlipidemia, Chronic Kidney Disease Denies: HIV - Surgical History Surgical History: No Surg Hx - Family History Family History: States: Diabetes, Hypertension - Home Medications Home Medications: Ambulatory Orders Medication Instructions Recorded Lisinopril/Hydrochlorothiazide 1 tab PO DAILY 07/08/16 [Lisinopril-Hctz 20-25 mg Tab] Lovastatin 10 mg PO DAILY 07/08/16 Metformin HCl [Glucophage] 1,000 mg PO BID 07/08/16 Patient Own Control 1 tab PO BID 01/05/17 GlipiZIDE [Glucotrol] 10 mg PO BID tab 01/07/17 Metoprolol Tartrate [Lopressor] 12.5 mg PO Q12 tab 01/07/17 amLODIPine [Norvasc] 10 mg PO DAILY tab 01/07/17 Aspirin [Aspirin Chewable] 81 mg PO DAILY 03/26/17 Clobetasol 0.05% [Temovate 0.05%] 1 applic TOP BID #1 tube 10/15/17 Sulfamethoxazole/Trimethoprim 2 tab PO BID #28 tab 10/15/17 [Bactrim DS 800 mg-160 mg] Famotidine [Pepcid] 40 mg PO DAILY PRN #14 tab 05/01/18 Methylprednisolone [Medrol Dose 4 mg PO DAILY #21 mg 05/01/18 Pack (21 tabs)] Cetirizine HCl [Zyrtec] 10 mg PO QAM #10 capsule 05/06/18 - Allergies Allergies/Adverse Reactions: Allergies Allergy/AdvReac Type Severity Reaction Status Date / Time No Known Allergies Allergy Verified 05/05/18 23:05 Review of Systems Constitutional: Positive for: Other (allergic reaction). Negative for: Fever, Chills Cardiovascular: Negative for: Chest Pain Respiratory: Negative for: Cough, Shortness of Breath Physical Exam - Reviewed Nursing Documentation Reviewed: Yes Vital Signs Reviewed: Yes - Physical Exam Appears: Positive for: No Acute Distress Head Exam: Positive for: NORMAL INSPECTION Skin: Positive for: Normal Color, Warm, Dry. Negative for: Rash Eye Exam: Positive for: Normal appearance, EOMI, PERRL, Other (moderate swelling of b/l eye lids with weeping ). Negative for: Nystagmus ENT: Positive for: Normal ENT Inspection, Pharyngeal Erythema (Mild erythema noted on superior aspect of posterior pharynx), Other (Angioedema noted lower lip ). Negative for: Nasal Congestion, Tonsillar Exudate, Tonsillar Swelling Neck: Positive for: Normal, Painless ROM, Supple Cardiovascular/Chest: Positive for: Regular Rate, Rhythm, Chest Non Tender. Negative for: Murmur, Tachycardia Respiratory: Positive for: Normal Breath Sounds. Negative for: Rales, Rhonchi, Stridor, Wheezing, Respiratory Distress Gastrointestinal/Abdominal: Positive for: Normal Exam, Bowel Sounds, Soft. Negative for: Tenderness, Mass, Guarding, Rebound Neurologic/Psych: Positive for: Alert, Oriented, Gait - Laboratory Results Result Diagrams: 05/09/18 14:27 05/09/18 15:20 - ECG O2 Sat by Pulse Oximetry: 100 (RA) Pulse Ox Interpretation: Normal - Progress ED Course And Treament: 1413 Initial Impression 57 year old female presenting with allergic reaction Initial Plan: * BMP * Potassium * CBC * Benadryl 50 mg IVP * SOLU-medrol 125 mg IVP * Reevaluation Documented by Tracy Benton acting as a scribe for Jong Romero PA-C. All medical record entries made by the Scribe were at my direction and personally dictated by me. I have reviewed the chart and agree that the record accurately reflects my personal performance of the history, physical exam, medical decision making, and the department course for this patient. I have also personally directed, reviewed, and agree with the discharge instructions and disposition. Seen by Dr. Comer family nurse. We will stop Lisinopril. Patient re-examined 1.5 hours post medication administration. Notes no improvemet of symptoms in ED. Family medicine unable to secure appointment for Thursday with certainty. Will admit tele observation for angioedema secondary to GOPI inhibitor Disposition - Clinical Impression Clinical Impression: Angioedema - Patient ED Disposition Is Patient to be Admitted: Yes - Disposition Disposition Time: 16:31 Condition: FAIR - Pt Status Changed To: Hospital Disposition Of: Observation
[2018-05-09 15:06] LABS: BLOOD UREA NITROGEN 39 mg/dl (7-17); CALCIUM 9.8 mg/dL (8.4-10.2); GFR NON-AFRICAN AMERICAN 57
--- NOTE | 2018-05-09 17:38 | CP.PCM.HP ---
<GauravSamir - Last Filed: 05/09/18 18:26> History of Present Illness - History of Present Illness History of Present Illness: Hx taken from patient, patient's daughter and medical records Full code PMD: NHC 57 y/o F with Pmhx of NIDDM2, HTN and HLD presented to ER c/o periorbital erythema associated with itching and mild swelling and burning sensation on the lips. As per patient symptoms started 1 week ago. She presented to ED 2 times in the past week and was prescribed steroids and benadryl with some improvement but never resolved and since Yesterday symptoms are worse. Significant Hx includes patient on Lisinopril for for than 1 year without previous similar episodes. Denies SOB, CP, palpitations, difficulty swallowing, eye or periorbital pain, nausea or vomiting. ED course VS stable No oral way compromise Labs significant for mild hyperkalemia(5.3), mild leukocytosis(patient on Medrol pack), BUN 39 and mild eosinophilia Solu-Medrol 125 g iv once Benadryl 50 mg IV once PMHx: HTN, HLD, DM. Other significant Hx findings: Patient had Renal US that was suspicious for right renal artery stenosis in 2017, however CT angiogram performed after showed no renal arteries were not impaired Meds: * Metformin 1000 mg PO BID * Lisinopril/HCTZ 1 tab PO daily * Lovastatin 10 mg PO daily * Glipizide 10 mg PO BID * Metoprolol 12.5 mg PO Q12H * Amlodipine 10mg PO daily Allergies: NKDA Surgeries: debridement of an infected wound in her right ankle (states 2/2 DM) Social hx: Lives with family, Denies etoh, tobacco, or drug use. Present on Admission - Present on Admission Any Indicators Present on Admission: No Review of Systems - Review of Systems All systems: reviewed and no additional remarkable complaints except (Those described on HPI) Past Patient History - Past Medical History & Family History Past Medical History?: Yes - Past Social History Smoking Status: Never Smoked Alcohol: None Drugs: Denies - CARDIAC Hx Hypercholesterolemia: Yes Hx Hypertension: Yes - PULMONARY Hx Respiratory Disorders: No - NEUROLOGICAL Hx Neurological Disorder: No - HEENT Hx HEENT Problems: No - RENAL Hx Chronic Kidney Disease: Yes - ENDOCRINE/METABOLIC Hx Endocrine Disorders: Yes Hx Diabetes Mellitus Type 2: Yes - HEMATOLOGICAL/ONCOLOGICAL Hx Human Immunodeficiency Virus (HIV): No - INTEGUMENTARY Hx Dermatological Problems: No - MUSCULOSKELETAL/RHEUMATOLOGICAL Hx Falls: No - GASTROINTESTINAL Hx Gastroesophageal Reflux: Yes - GENITOURINARY/GYNECOLOGICAL Hx Genitourinary Disorders: No - PSYCHIATRIC Hx Psychophysiologic Disorder: No Hx Substance Use: No - SURGICAL HISTORY Hx Surgeries: Yes Other/Comment: Right ankle Debridment 5yrs ago - ANESTHESIA Hx Anesthesia: Yes Hx Anesthesia Reactions: No Hx Malignant Hyperthermia: No Meds Allergies/Adverse Reactions: Allergies Allergy/AdvReac Type Severity Reaction Status Date / Time No Known Allergies Allergy Verified 05/05/18 23:05 Physical Exam - Constitutional Appears: Non-toxic - Head Exam Head Exam: ATRAUMATIC - Eye Exam Eye Exam: EOMI, Periorbital swelling, PERRL. absent: Conjunctival injection, Normal appearance (B/L periorbital erythema with mild swelling. There is not pain iwth eye movements) - ENT Exam ENT Exam: Mucous Membranes Dry (slight) Additional comments: Lips cracked and slightly swollen. There is no swelling of the tongue and uvula is midline - Neck Exam Neck exam: Positive for: Full Rom, Normal Inspection. Negative for: Tenderness - Respiratory Exam Respiratory Exam: Clear to Auscultation Bilateral, NORMAL BREATHING PATTERN. absent: Decreased Breath Sounds, Rales, Rhonchi, Wheezes, Respiratory Distress - Cardiovascular Exam Cardiovascular Exam: REGULAR RHYTHM, +S1, +S2. absent: Gallop - GI/Abdominal Exam GI & Abdominal Exam: Normal Bowel Sounds, Soft. absent: Distended, Firm, Guarding, Rebound, Rigid, Tenderness - Extremities Exam Extremities exam: Positive for: normal capillary refill, pedal pulses present. Negative for: calf tenderness, joint swelling, pedal edema - Neurological Exam Neurological exam: Alert, CN II-XII Intact, Oriented x3 - Psychiatric Exam Psychiatric exam: Normal Affect, Normal Mood - Skin Skin Exam: Rash (Periorbital), Warm Results - Vital Signs Recent Vital Signs: Last Vital Signs Temp 98.4 F 05/09/18 13:47 Pulse 92 H 05/09/18 13:47 Resp 16 05/09/18 13:47 BP 161/78 H 05/09/18 13:47 Pulse Ox 100 05/09/18 16:57 - Labs Result Diagrams: 05/09/18 14:27 05/09/18 15:20 Labs: Laboratory Results - last 24 hr 05/09/18 05/09/18 05/09/18 14:27 14:27 15:20 WBC 13.9 H RBC 4.34 Hgb 12.7 Hct 37.3 MCV 85.9 MCH 29.3 MCHC 34.1 RDW 13.3 Plt Count 255 MPV 9.3 Neut % (Auto) 67.9 Lymph % (Auto) 18.8 L [place] % (Auto) 5.6 Eos % (Auto) 7.0 H Baso % (Auto) 0.7 Neut # (Auto) 9.4 H Lymph # (Auto) 2.6 [place] # (Auto) 0.8 Eos # (Auto) 1.0 H Baso # (Auto) 0.1 Sodium 135 Potassium 5.5 H 5.3 H Chloride 103 Carbon Dioxide 19 L Anion Gap 19 BUN 39 H Creatinine 1.0 Est GFR ( Amer) > 60 Est GFR (Non-Af Amer) 57 Random Glucose 195 H Calcium 9.8 Assessment & Plan - Assessment and Plan (Free Text) Assessment: 57 y/o F with PMhx of NIDDM2, HTN and HLD is admitted for angioedema Angioedema Acute Likely side effect of ACEi. Will stop Lisinopril Benadryl 25 mg IV q6 NS 500 ml IV bolus Monitor airway Admit to Telemetry unit HTN Chronic Stable C/W Norvasc, Metoprolol and HCTZ Discontinue Lisinopril. Although patient could benefit from ARBs due to NIDDM Hx and Angioedema with ARBs use is uncommon consider not starting patient on ARBs since K is elevated and patient has US suspicious in the past for R/renal artery stenosis, although not confirmed with CT angio. Monitor NIDDM2 Chronic Last A1c in 11/2017 =7.2 Continue with Metformin and Glipizide ACHS ISS low dose Diabetic diet Hyperkalemia Acute Mild K 5.3 Likely ACEi SE and hyperglycemia Stop ACEi, IV NS 500, F/U CMP AM DVT prophylaxis Lovenox 40 mg HS SCDs <Vi Alejandro - Last Filed: 05/10/18 08:35> Results - Vital Signs Recent Vital Signs: Last Vital Signs Temp 98.6 F 05/10/18 08:28 Pulse 89 05/10/18 08:28 Resp 18 07/30/18 08:28 BP 157/75 H 07/30/18 08:28 Pulse Ox 99 05/10/18 08:28 - Labs Result Diagrams: 05/10/18 04:20 05/10/18 04:20 Labs: Laboratory Results - last 24 hr 05/09/18 05/09/18 05/09/18 14:27 14:27 15:20 WBC 13.9 H RBC 4.34 Hgb 12.7 Hct 37.3 MCV 85.9 MCH 29.3 MCHC 34.1 RDW 13.3 Plt Count 255 MPV 9.3 Neut % (Auto) 67.9 Lymph % (Auto) 18.8 L [place] % (Auto) 5.6 Eos % (Auto) 7.0 H Baso % (Auto) 0.7 Neut # (Auto) 9.4 H Lymph # (Auto) 2.6 [place] # (Auto) 0.8 Eos # (Auto) 1.0 H Baso # (Auto) 0.1 Sodium 135 Potassium 5.5 H 5.3 H Chloride 103 Carbon Dioxide 19 L Anion Gap 19 BUN 39 H Creatinine 1.0 Est GFR ( Amer) > 60 Est GFR (Non-Af Amer) 57 POC Glucose (mg/dL) Random Glucose 195 H Calcium 9.8 Total Bilirubin AST ALT Alkaline Phosphatase Total Protein Albumin Globulin Albumin/Globulin Ratio Urine Color Urine Clarity Urine pH Ur Specific [place] Urine Protein Urine Glucose (UA) Urine Ketones Urine Blood Urine Nitrate Urine Bilirubin Urine Urobilinogen Ur Leukocyte Esterase Urine RBC (Auto) Urine Microscopic WBC Ur Squamous Epith Cells Urine Bacteria 05/09/18 05/09/18 05/10/18 18:00 22:33 04:20 WBC 10.1 RBC 4.14 Hgb 12.1 Hct 35.6 MCV 86.0 MCH 29.3 MCHC 34.0 RDW 13.2 Plt Count 240 MPV 9.5 Neut % (Auto) 90.6 H Lymph % (Auto) 8.3 L [place] % (Auto) 0.9 Eos % (Auto) 0.1 Baso % (Auto) 0.1 Neut # (Auto) 9.2 H Lymph # (Auto) 0.8 L [place] # (Auto) 0.1 Eos # (Auto) 0.0 Baso # (Auto) 0.0 Sodium Potassium Chloride Carbon Dioxide Anion Gap BUN Creatinine Est GFR ( Amer) Est GFR (Non-Af Amer) POC Glucose (mg/dL) 324 H Random Glucose Calcium Total Bilirubin AST ALT Alkaline Phosphatase Total Protein Albumin Globulin Albumin/Globulin Ratio Urine Color Straw Urine Clarity Clear Urine pH 6.0 Ur Specific [place] 1.012 Urine Protein Negative Urine Glucose (UA) >=500 Urine Ketones Negative Urine Blood Negative Urine Nitrate Negative Urine Bilirubin Negative Urine Urobilinogen 0.2-1.0 Ur Leukocyte Esterase Trace Urine RBC (Auto) 2 Urine Microscopic WBC 3 Ur Squamous Epith Cells 2 Urine Bacteria Rare 05/10/18 05/10/18 05/10/18 04:20 04:54 06:06 WBC RBC Hgb Hct MCV MCH MCHC RDW Plt Count MPV Neut % (Auto) Lymph % (Auto) [place] % (Auto) Eos % (Auto) Baso % (Auto) Neut # (Auto) Lymph # (Auto) [place] # (Auto) Eos # (Auto) Baso # (Auto) Sodium 136 Potassium 5.5 H Chloride 101 Carbon Dioxide 24 Anion Gap 17 BUN 31 H Creatinine 1.2 Est GFR ( Amer) 56 Est GFR (Non-Af Amer) 46 POC Glucose (mg/dL) 419 H* 376 H Random Glucose 437 H* D Calcium 9.6 Total Bilirubin 0.3 AST 21 ALT 25 Alkaline Phosphatase 150 H Total Protein 7.1 Albumin 3.7 Globulin 3.4 Albumin/Globulin Ratio 1.1 Urine Color Urine Clarity Urine pH Ur Specific [place] Urine Protein Urine Glucose (UA) Urine Ketones Urine Blood Urine Nitrate Urine Bilirubin Urine Urobilinogen Ur Leukocyte Esterase Urine RBC (Auto) Urine Microscopic WBC Ur Squamous Epith Cells Urine Bacteria Attending/Attestation - Attestation I have fully participated in the care of the patient.: Yes I have reviewed all pertinent clinical information: Yes
[2018-05-09] MEDS ORDERED: Sodium Chloride 0.9% 500 ML IV ONE (17:52)
[2018-05-09] MEDS ORDERED: Dextrose 50% SYRINGE Inj (50 ml) IV PRN (17:54)
[2018-05-09] MEDS ORDERED: Glucagon Recombinant 1 mg Inj IM PRN (17:54)
[2018-05-09] MEDS ORDERED: Insulin Regular 100 units/ml ONE (18:26)
[2018-05-09] MEDS: DiphenhydrAMINE 50 mg/ml Inj IVP SCH (22:46)
[2018-05-09] MEDS ORDERED: Insulin Regular 100 units/ml SC SCH (23:00)
[2018-05-09 23:03] LABS: SQUAMOUS EPITHIAL 2 /hpf (0-5); URINE BACTERIA RARE (<OCC); URINE BILIRUBIN NEGATIVE (NEGATIVE); URINE BLOOD NEGATIVE (NEGATIVE); URINE CLARITY CLEAR (Clear); URINE COLOR STRAW (YELLOW); URINE GLUCOSE (UA) >=500 mg/dL (Normal); URINE LEUKOCYTE ESTERASE TRACE Leu/uL (Negative); URINE PROTEIN NEGATIVE (NEGATIVE); URINE UROBILINOGEN 0.2-1.0 mg/dL (0.2-1.0)
[2018-05-10] MEDS: DiphenhydrAMINE 50 mg/ml Inj IVP SCH ×4 (03:31→21:00)
[2018-05-10] MEDS ORDERED: Insulin Lispro (humaLOG) 100 Units/ml Inj SC STA (05:04)
[2018-05-10] MEDS ORDERED: Insulin Regular 100 units/ml SC SCH (05:05)
[2018-05-10] MEDS ORDERED: Insulin Regular 100 units/ml SC STA (05:18)
[2018-05-10 06:13] LABS: BASO % 0.1 % (0.0-2.0); EOS % 0.1 % (0.0-4.0); HEMOGLOBIN 12.1 g/dL (12.0-16.0); LYMPH # 0.8 K/uL (1.0-4.3); LYMPH % 8.3 % (20.0-40.0); MEAN CORPUSCULAR HEMOGLOBIN 29.3 pg (27.0-31.0); MEAN PLATELET VOLUME 9.5 fl (7.2-11.7); MONO # 0.1 K/uL (0.0-0.8); MONO % 0.9 % (0.0-10.0); NEUT # 9.2 K/uL (1.8-7.0); NEUT % 90.6 % (50.0-75.0); PLATELET COUNT 240 K/uL (130-400); RBC 4.14 Mil/uL (3.80-5.20); RED CELL DISTRIBUTION WIDTH 13.2 % (11.5-14.5); WHITE BLOOD COUNT 10.1 K/uL (4.8-10.8)
--- NOTE | 2018-05-10 06:41 | CP.PCM.PN ---
Subjective - Date & Time of Evaluation Date of Evaluation: 05/10/18 Time of Evaluation: 06:30 - Subjective Subjective: Pt is seen and examined at bed site. Pt have no acute event overnight, she is feeling better, can breath easily and no SOB. Swollen have improved, She fever , chills, Chest pain, abd pain, diarrhea, constipation, dysuria, polyuria. Objective - Vital Signs/Intake and Output Vital Signs (last 24 hours): Temp Pulse Resp BP Pulse Ox 98.2 F 78 18 157/75 H 98 05/10/18 04:21 05/10/18 04:21 05/10/18 04:21 05/10/18 04:21 05/10/18 04:21 - Medications Medications: Current Medications Amlodipine Besylate (Norvasc) 10 mg PO DAILY [facility] Aspirin (Aspirin Chewable) 81 mg PO DAILY [facility] Atorvastatin Calcium (Lipitor) 10 mg PO DAILY [facility] Dextrose (Dextrose 50% Inj) 0 ml IV STAT PRN; Protocol PRN Reason: Hypoglycemia Protocol Dextrose (Glutose 15) 0 gm PO ONCE PRN; Protocol PRN Reason: Hypoglycemia Protocol Diphenhydramine HCl (Benadryl) 25 mg IVP Q6 [facility] Last Admin: 05/10/18 03:31 Dose: 25 mg Enoxaparin Sodium (Lovenox) 40 mg SC HS [facility] PRN Reason: Protocol Famotidine (Pepcid) 20 mg PO DAILY [facility] Glipizide (Glucotrol) 10 mg PO BID [facility] Glucagon (Glucagen Diagnostic Kit) 0 mg IM STAT PRN; Protocol PRN Reason: Hypoglycemia Protocol Hydrochlorothiazide (Microzide) 12.5 mg PO DAILY [facility] Sodium Chloride (Sodium Chloride 0.9%) 500 mls @ 500 mls/hr IV .Q1H ONE Stop: 05/10/18 07:09 Insulin Human Regular (Humulin R) 0 units SC ACCU-CHECK [facility] PRN Reason: Protocol Last Admin: 05/10/18 06:14 Dose: 8 units Metformin HCl (Glucophage) 1,000 mg PO BID [facility] Metoprolol Tartrate (Lopressor) 25 mg PO Q12 [facility] Last Admin: 05/09/18 22:46 Dose: 25 mg - Labs Labs: 05/09/18 14:27 05/09/18 15:20 - Constitutional Appears: Well, Non-toxic, No Acute Distress - Head Exam Head Exam: ATRAUMATIC, NORMAL INSPECTION, NORMOCEPHALIC - Eye Exam Eye Exam: EOMI, Normal appearance, Periorbital swelling, PERRL Pupil Exam: NORMAL ACCOMODATION, PERRL Additional comments: Periorbital swollen improving - ENT Exam ENT Exam: Mucous Membranes Moist, Normal Exam Additional comments: Perioral swollen improving - Neck Exam Neck Exam: Full ROM, Normal Inspection - Respiratory Exam Respiratory Exam: Clear to Ausculation Bilateral, NORMAL BREATHING PATTERN - Cardiovascular Exam Cardiovascular Exam: REGULAR RHYTHM, +S1, +S2 - GI/Abdominal Exam GI & Abdominal Exam: Soft, Normal Bowel Sounds. absent: Tenderness - Extremities Exam Extremities Exam: Full ROM, Normal Capillary Refill, Normal Inspection - Back Exam Back Exam: NORMAL INSPECTION - Neurological Exam Neurological Exam: Alert, Awake, Oriented x3 - Psychiatric Exam Psychiatric exam: Normal Affect, Normal Mood - Skin Skin Exam: Dry, Intact, Normal Color, Warm Assessment and Plan - Assessment and Plan (Free Text) Assessment: 57 y/o F with PMhx of NIDDM2, HTN and HLD is admitted for angioedema Angioedema Improving No difficulty breathing, Swollen decreased Most likely due to ACEI. Lisinopril Stopped Benadryl 25 mg IV q6 NS 500 ml IV bolus Monitor airway Admit to Telemetry unit Levemir Hyperkalemia Acute Mild Trending up K5.3-> 5.5 EKG : NSR Likely ACEi side affect and hyperglycemia Stop ACEi, IV NS 500 kayexalate given F/U BMP HTN Chronic Stable Continue with Norvasc, Metoprolol and HCTZ Lisinopril stop, Will consider ARBs after K is corrected Patient has US suspicious in the past for Right renal artery stenosis, although not confirmed with CT angio. Monitor NIDDM2 Chronic Unstable Blood glucose 437 most likely due to steroid Last A1c in 11/2017 =7.2 Continue with Metformin and Glipizide Start on Lispro Medium coverage protocol Diabetic diet DVT prophylaxis Lovenox 40 mg HS SCDs
[2018-05-10] MEDS: Sodium Chloride 0.9% 500 ML IV ONE ×2 (06:42→08:16)
[2018-05-10 06:47] LABS: ALB/GLOB RATIO 1.1 (1.0-2.1); ALBUMIN 3.7 g/dL (3.5-5.0); CALCIUM 9.6 mg/dL (8.4-10.2)
[2018-05-10] MEDS ORDERED: Sod Polystyrene Sulf 15 gm/60 ml Susp PO ONE (10:00)
[2018-05-10 10:55] LABS: LYMPHOCYTE 3 % (20-50); MONOCYTE 3 % (0-10); NEUTROPHIL 94 % (42-75); PLATELET ESTIMATE NORMAL (NORMAL); TOTAL CELLS COUNTED 100
[2018-05-10 11:25] LABS: BLOOD UREA NITROGEN 27 mg/dl (7-17); GFR NON-AFRICAN AMERICAN 57
[2018-05-10 11:26] LABS: CALCIUM 9.8 mg/dL (8.4-10.2)
[2018-05-10 11:27] LABS: ALBUMIN 3.8 g/dL (3.5-5.0); ALT/SGPT 30 U/L (9-52); AST/SGOT 20 U/L (14-36)
[2018-05-10] MEDS ORDERED: Insulin Lispro (humaLOG) 100 Units/ml Inj SC ONE (11:50)
[2018-05-10 14:40] LABS: ALB/GLOB RATIO 1.1 (1.0-2.1)
[2018-05-10] MEDS: Insulin Lispro (humaLOG) 100 Units/ml Inj SC SCH ×2 (16:02→22:00)
--- NOTE | 2018-05-10 17:23 | US ---
Date of service: 05/10/2018 PROCEDURE: Ultrasonography renal arterial evaluation HISTORY: renal artery stenosis COMPARISON: 01/06/2017 duplex renal scan TECHNIQUE: Real-time ultrasonography evaluation of the renal arteries were performed. Comparison is made to the aorta. Report prepared by production technologist. FINDINGS: AORTA: Patent. Peak systolic velocity seventy-three centimeters/second RIGHT RENAL ARTERY: Renal artery to aorta ratio: 2.0 * Proximal segment: Patent. Peak systolic velocity 149.1 centimeters/second * Mid segment: Patent. Peak systolic velocity 93.5 centimeters/second * Distal segment: Patent. Peak systolic velocity 122.7 centimeters/second Other findings: Right Kidney measures approximately 9.3 centimeters. LEFT RENAL ARTERY: Renal artery to aorta ratio: 1.4 * Proximal segment: Patent. Peak systolic velocity 99.5 centimeters/second * Mid segment: Patent. Peak systolic velocity 104.1 centimeters/second * Distal segment: Patent. Peak systolic velocity 73.6 centimeters/second Other findings: Left Kidney measures approximately 10.6 centimeters. IMPRESSION: Limited evaluation. No definite hemodynamically significant stenosis involving the renal arteries as visualized. (Please note that the proximal left peroneal artery was not visualized. Elevated peak systolic velocities identified proximal segment of the right renal artery on the prior study have diminished.
--- NOTE | 2018-05-10 17:47 | CARD ---
APPROVED REPORT Date of service: 05/09/2018 EKG Measurement Heart [id number] ID [id number] <Conclusion> Normal sinus rhythm Normal ECG
[2018-05-10] MEDS ORDERED: Insulin Detemir 100 Units/ml Inj SC SCH (22:00)
[2018-05-10] MEDS ORDERED: Enoxaparin 40 mg Syringe SC SCH (22:00)
[2018-05-11 00:46] VITALS: O2SAT 99
[2018-05-11] MEDS: DiphenhydrAMINE 50 mg/ml Inj IVP SCH (04:00)
[2018-05-11 08:03] VITALS: RESP 17
[2018-05-11] MEDS: Insulin Lispro (humaLOG) 100 Units/ml Inj SC SCH ×2 (08:21→11:11)
[2018-05-11 09:39] LABS: CALCIUM 9.7 mg/dL (8.4-10.2)
--- NOTE | 2018-05-11 11:27 | CP.PCM.DIS ---
Provider - Provider Date of Admission: 05/09/18 16:31 Attending physician: Gabriela Parsons MD Time Spent in preparation of Discharge (in minutes): 15 Hospital Course - Lab Results Lab Results: Most Recent Lab Values WBC 10.1 K/uL (4.8-10.8) 05/10/18 04:20 RBC 4.14 Mil/uL (3.80-5.20) 05/10/18 04:20 Hgb 12.1 g/dL (12.0-16.0) 05/10/18 04:20 Hct 35.6 % (34.0-47.0) 05/10/18 04:20 MCV 86.0 fl (81.0-99.0) 05/10/18 04:20 MCH 29.3 pg (27.0-31.0) 05/10/18 04:20 MCHC 34.0 g/dL (33.0-37.0) 05/10/18 04:20 RDW 13.2 % (11.5-14.5) 05/10/18 04:20 Plt Count 240 K/uL (130-400) 05/10/18 04:20 MPV 9.5 fl (7.2-11.7) 05/10/18 04:20 Neut % (Auto) 90.6 % (50.0-75.0) H 05/10/18 04:20 Lymph % (Auto) 8.3 % (20.0-40.0) L 05/10/18 04:20 [place] % (Auto) 0.9 % (0.0-10.0) 05/10/18 04:20 Eos % (Auto) 0.1 % (0.0-4.0) 05/10/18 04:20 Baso % (Auto) 0.1 % (0.0-2.0) 05/10/18 04:20 Neut # (Auto) 9.2 K/uL (1.8-7.0) H 05/10/18 04:20 Lymph # (Auto) 0.8 K/uL (1.0-4.3) L 05/10/18 04:20 [place] # (Auto) 0.1 K/uL (0.0-0.8) 05/10/18 04:20 Eos # (Auto) 0.0 K/uL (0.0-0.7) 05/10/18 04:20 Baso # (Auto) 0.0 K/uL (0.0-0.2) 05/10/18 04:20 Neutrophils % (Manual) 94 % (42-75) H 05/10/18 04:20 Lymphocytes % (Manual) 3 % (20-50) L 05/10/18 04:20 Monocytes % (Manual) 3 % (0-10) 05/10/18 04:20 Platelet Estimate Normal (NORMAL) 05/10/18 04:20 RBC Morphology Normal (NORMAL) 05/10/18 04:20 Sodium 140 mmol/l (132-148) 05/11/18 08:40 Potassium 4.7 MMOL/L (3.6-5.0) 05/11/18 08:40 Chloride 101 mmol/L (98-107) 05/11/18 08:40 Carbon Dioxide 28 mmol/L (22-30) 05/11/18 08:40 Anion Gap 16 (10-20) 05/11/18 08:40 BUN 30 mg/dl (7-17) H 05/11/18 08:40 Creatinine 1.2 mg/dl (0.7-1.2) 05/11/18 08:40 Est GFR ( Amer) 56 05/11/18 08:40 Est GFR (Non-Af Amer) 46 05/11/18 08:40 POC Glucose (mg/dL) 297 mg/dL (65-110) H 05/11/18 11:02 Random Glucose 207 mg/dL (65-105) H 05/11/18 08:40 Calcium 9.7 mg/dL (8.4-10.2) 05/11/18 08:40 Phosphorus 2.5 mg/dl (2.5-4.5) 05/10/18 10:56 Magnesium 1.6 MG/DL (1.6-2.3) 05/10/18 10:56 Total Bilirubin 0.3 mg/dl (0.2-1.3) 05/10/18 10:56 AST 20 U/L (14-36) 05/10/18 10:56 ALT 30 U/L (9-52) 05/10/18 10:56 Alkaline Phosphatase 179 U/L (38-126) H 05/10/18 10:56 Total Protein 7.2 G/DL (6.3-8.2) 05/10/18 10:56 Total Protein (PEP) 7.1 g/dL (6.1-8.1) 05/10/18 10:56 Albumin 3.8 g/dL (3.5-5.0) 05/10/18 10:56 Globulin 3.3 gm/dL (2.2-3.9) 05/10/18 10:56 Albumin/Globulin Ratio 1.1 (1.0-2.1) 05/10/18 10:56 Urine Color Straw (YELLOW) 05/09/18 22:33 Urine Clarity Clear (Clear) 05/09/18 22:33 Urine pH 6.0 (5.0-8.0) 05/09/18 22:33 Ur Specific [place] 1.012 (1.003-1.030) 05/09/18 22:33 Urine Protein Negative mg/dL (NEGATIVE) 05/09/18 22:33 Urine Glucose (UA) >=500 mg/dL (Normal) 05/09/18 22:33 Urine Ketones Negative mg/dL (NEGATIVE) 05/09/18 22:33 Urine Blood Negative (NEGATIVE) 05/09/18 22:33 Urine Nitrate Negative (NEGATIVE) 05/09/18 22:33 Urine Bilirubin Negative (NEGATIVE) 05/09/18 22:33 Urine Urobilinogen 0.2-1.0 mg/dL (0.2-1.0) 05/09/18 22:33 Ur Leukocyte Esterase Trace Janna/uL (Negative) 05/09/18 22:33 Urine RBC (Auto) 2 /hpf (0-3) 05/09/18 22:33 Urine Microscopic WBC 3 /hpf (0-5) 05/09/18 22:33 Ur Squamous Epith Cells 2 /hpf (0-5) 05/09/18 22:33 Urine Bacteria Rare (<OCC) 05/09/18 22:33 Ur Random Creatinine 22 mg/dL (20-320) 05/10/18 16:30 U Random Total Protein 208 mg/g creat (21-161) H 05/10/18 16:30 Ur Random Sodium 73 meq/L 05/10/18 16:30 Ur Random Potassium 8.6 mmol/L 05/10/18 16:30 Urine Chloride 71 mmol/L (32-290) 05/10/18 16:30 - Hospital Course Hospital Course: Pt is 57 yo f with PMH NIDDM2, HTN, HLD presented to ER due to swollen, PT was admitted for angioedema. Pt was also found to have Hyperkalemia . Pt was managed medically. Lisinopril is stopped due to possible causative reaction. Potassium is regulated. Pt have improved, and swollen have decreased, Pt denies SOB, Chest pain, abd pain, or any other symptoms Medical team approve pt is medically stable to be discharged F/U with Dr. Comer on 05/13/18, referral will be given for cardiology with Dr. Castro Discharge Exam - Head Exam Head Exam: ATRAUMATIC, NORMAL INSPECTION, NORMOCEPHALIC - Eye Exam Eye Exam: EOMI, Normal appearance, PERRL Pupil Exam: NORMAL ACCOMODATION, PERRL - ENT Exam ENT Exam: Normal Exam - Respiratory Exam Respiratory Exam: Clear to PA & Lateral, NORMAL BREATHING PATTERN, UNREMARKABLE - Cardiovascular Exam Cardiovascular Exam: REGULAR RHYTHM, +S1, +S2 - GI/Abdominal Exam GI & Abdominal Exam: Normal Bowel Sounds, Unremarkable - Extremities Exam Extremities exam: full ROM - Back Exam Back exam: FULL ROM - Neurological Exam Neurological exam: Alert, Normal Gait, Oriented x3 - Psychiatric Exam Psychiatric exam: Normal Affect, Normal Mood - Skin Skin Exam: Dry, Intact, Normal Color, Warm Discharge Plan - Follow Up Plan Condition: GOOD Disposition: HOME/ ROUTINE Instructions: Angioedema (DC) Additional Instructions: follow up in the clinic on05/13/18 at 3:20pm with Referrals: [facility] [Outside]
[2018-05-11 12:00] VITALS: BP 135/70; PULSE 71; TEMP 98.4
[2018-05-12 13:23] LABS: ALBUMIN (PEP) 3.7 g/dL (3.8-4.8); ALPHA-1-GLOBULIN (PEP) 0.3 g/dL (0.2-0.3)
[2018-05-12 15:29] LABS: ALBUMIN 31.7 Relative %; ALPHA-1 GLOBULIN 6.3 Relative %
== END 2018-05-11 13:48 | disposition home or self-care (01) ==
LOC: H.ER 13:41 → H.ERHOLD 16:31 → H.TEL 22:58
PROVIDERS: ADMIT Family Medicine Geriatric Medicine; ATTEND Family Medicine Geriatric Medicine
DX: T78.3XXA Angioneurotic edema, initial encounter (principal); E87.5 Hyperkalemia; I12.9 Hypertensive chronic kidney disease with stage 1 through stage 4 chronic kidney disease, or unspecified chronic kidney disease; E11.65 Type 2 diabetes mellitus with hyperglycemia; E11.22 Type 2 diabetes mellitus with diabetic chronic kidney disease; N18.9 Chronic kidney disease, unspecified; K21.9 Gastro-esophageal reflux disease without esophagitis; E78.5 Hyperlipidemia, unspecified; E78.00 Pure hypercholesterolemia, unspecified; Z79.84 Long term (current) use of oral hypoglycemic drugs
CPT/HCPCS: 36415; 76770; 80048; 80053; 81003; 82436; 82570; 82948; 83735; 84100; 84132; 84155; 84156; 84165; 84166; 84300; 85025; 86039; 93005; 96372; 96374; 99285; G0378; J1200; J1650; J2930; J7040

== ENCOUNTER 2018-05-26 13:42 | Emergency (ER) | payer SELFPAY ==
[2018-05-26 13:42] VITALS: BMI 27.8
[2018-05-26 13:54] VITALS: TEMP 98.5; O2SAT 99
[2018-05-26] MEDS ORDERED: Sodium Chloride 0.9% 1,000 ML IV STA ×2 (14:27→15:47)
[2018-05-26] MEDS ORDERED: Insulin Regular 100 units/ml SC STA (14:28)
--- NOTE | 2018-05-26 15:17 | ED PDOC ---
Hyperglycemia/Hypoglycemia Time Seen by Provider: 05/26/18 14:01 Chief Complaint (Nursing): High Blood Sugar Chief Complaint (Provider): High blood sugar History Per: Patient Onset/Duration Of Symptoms: Days (x2) Current Symptoms Are (Timing): Still Present : The patient does not have any of the infectious symptoms listed except for those marked. Additional Complaint(s): Lucian Mchugh, a 57 year old female with past medical history of diabetes, hypertension, and hypercholesterolemia, presents to the emergency department accompanied by daughter for high blood sugar onset for 2 days. Patient currently takes medication to treat her diabetes, hypertension and hypercholesterolemia. She states that 5 days ago she went to see her doctor, Dr. Sunil Dennis, because she had an itchy rash all over her body. Dr. Dennis believes it is due to medication. Patient is currently on Metformin 1,000mg BID , Glimepiride 2mg BID, Metoprolol 25mg QD, Lovastatin and Hydrochlorothiazide. Daughter states patient was taken off Lisinopril last month due to an allergic reaction to it. She denies cough, sore throat, belly pain, vomiting, fever or chills. PMD: Sunil Dennis Past Medical History Reviewed: Historical Data, Nursing Documentation, Vital Signs Vital Signs: Last Vital Signs Temp 98.5 F 05/26/18 13:50 Pulse 84 05/26/18 13:50 Resp 17 05/26/18 13:50 BP 154/84 H 05/26/18 13:50 Pulse Ox 99 05/26/18 13:50 - Medical History PMH: Diabetes, GERD, HTN, Hypercholesterolemia, Hyperlipidemia, Chronic Kidney Disease Denies: HIV - Surgical History Surgical History: No Surg Hx - Family History Family History: States: Diabetes, Hypertension - Home Medications Home Medications: Ambulatory Orders Medication Instructions Recorded Lovastatin 40 mg PO DAILY 07/08/16 Metformin HCl [Glucophage] 1,000 mg PO BID 07/08/16 GlipiZIDE [Glucotrol] 10 mg PO BID tab 01/07/17 amLODIPine [Norvasc] 10 mg PO DAILY tab 01/07/17 Aspirin [Aspirin Chewable] 81 mg PO DAILY 03/26/17 Cetirizine HCl [Zyrtec] 10 mg PO QAM #10 capsule 05/06/18 Famotidine [Pepcid] 20 mg PO DAILY PRN 05/09/18 Hydrochlorothiazide [Microzide] 12.5 mg PO DAILY 05/09/18 Metoprolol Tartrate [Lopressor] 25 mg PO Q12 05/09/18 - Allergies Allergies/Adverse Reactions: Allergies Allergy/AdvReac Type Severity Reaction Status Date / Time lisinopril Allergy ANAPHYLAXIS Verified 05/26/18 13:55 Review of Systems ROS Statement: Except As Marked, All Systems Reviewed And Found Negative Constitutional: Negative for: Fever, Chills ENT: Negative for: Throat Pain Respiratory: Negative for: Cough, Shortness of Breath Gastrointestinal: Negative for: Vomiting Physical Exam - Reviewed Nursing Documentation Reviewed: Yes Vital Signs Reviewed: Yes - Physical Exam Appears: Positive for: Non-toxic, No Acute Distress Head Exam: Positive for: ATRAUMATIC, NORMAL INSPECTION, NORMOCEPHALIC Skin: Positive for: Normal Color, Warm, Dry, Rash Eye Exam: Positive for: Normal appearance, EOMI, PERRL Neck: Positive for: Painless ROM Cardiovascular/Chest: Positive for: Regular Rate, Rhythm. Negative for: Murmur Respiratory: Positive for: Normal Breath Sounds. Negative for: Wheezing, Respiratory Distress Gastrointestinal/Abdominal: Positive for: Normal Exam, Soft. Negative for: Tenderness Back: Positive for: Normal Inspection Extremity: Positive for: Normal ROM. Negative for: Deformity, Swelling Neurologic/Psych: Positive for: Alert, Oriented. Negative for: Motor/Sensory Deficits - Laboratory Results Result Diagrams: 05/26/18 15:09 05/26/18 15:09 - ECG O2 Sat by Pulse Oximetry: 99 (RA) Pulse Ox Interpretation: Normal Medical Decision Making Medical Decision Making: Initial Impression: high blood sugar, rash Initial Plan: --CMP --Urine dipstick --DBD w/differential --Glucose --Insulin 8 units --Sodium chloride 1000 IV 999 mls/hr --IV insertion --Glucose, blood, POC Scribe Attestation: Documented by Nichole Morris, acting as a scribe for Nydia Whitlock MD. Provider Scribe Attestation: All medical record entries made by the Scribe were at my direction and personally dictated by me. I have reviewed the chart and agree that the record accurately reflects my personal performance of the history, physical exam, medical decision making, and the department course for this patient. I have also personally directed, reviewed, and agree with the discharge instructions and disposition. 4.45p - patient feeling better. Patient's daughter has been in touch with Dr. Graciela Dennis who will see her in 2 days to continue adjusting her meds. Disposition - Clinical Impression Clinical Impression: Hyperglycemia - Patient ED Disposition Is Patient to be Admitted: No Doctor Will See Patient In The: Office Counseled Patient/Family Regarding: Diagnosis, Need For Followup - Disposition Referrals: Sunil Dennis MD [Staff Provider] - 05/28/18 Disposition: Routine/Home Disposition Time: 16:45 Condition: IMPROVED Instructions: Hyperglycemia, Adult Forms: [facility] (Armenian) - POA Present On Arrival: None
[2018-05-26 15:20] LABS: BASO % 0.6 % (0.0-2.0); HEMOGLOBIN 12.6 g/dL (12.0-16.0); LYMPH # 1.4 K/uL (1.0-4.3); LYMPH % 25.3 % (20.0-40.0); MEAN CELL VOLUME 86.7 fl (81.0-99.0); MEAN CORPUSCULAR HEMOGLOBIN 29.3 pg (27.0-31.0); MEAN CORPUSCULAR HGB CONC 33.8 g/dL (33.0-37.0); MEAN PLATELET VOLUME 9.4 fl (7.2-11.7); MONO # 0.7 K/uL (0.0-0.8); MONO % 13.4 % (0.0-10.0); NEUT # 3.3 K/uL (1.8-7.0); NEUT % 60.7 % (50.0-75.0); RBC 4.32 Mil/uL (3.80-5.20); RED CELL DISTRIBUTION WIDTH 13.3 % (11.5-14.5); WHITE BLOOD COUNT 5.4 K/uL (4.8-10.8)
[2018-05-26] MEDS ORDERED: Insulin Regular 100 units/ml IV STA (15:46)
[2018-05-26 15:53] LABS: ALB/GLOB RATIO 1.1 (1.0-2.1); ALBUMIN 4.2 g/dL (3.5-5.0); CALCIUM 9.7 mg/dL (8.4-10.2)
[2018-05-26 17:19] VITALS: BP 141/65; PULSE 73; RESP 18
== END 2018-05-26 17:23 | disposition home or self-care (01) ==
LOC: H.ER 13:42
DX: E11.65 Type 2 diabetes mellitus with hyperglycemia (principal); E78.00 Pure hypercholesterolemia, unspecified; E11.22 Type 2 diabetes mellitus with diabetic chronic kidney disease; Z79.84 Long term (current) use of oral hypoglycemic drugs; I12.9 Hypertensive chronic kidney disease with stage 1 through stage 4 chronic kidney disease, or unspecified chronic kidney disease
CPT/HCPCS: 80053; 82948; 85025; 96361; 96374; 99283; J7030